=== PATIENT | male | born 1950 | race Caucasian/White ===

== ENCOUNTER 2016-06-20 22:54 | Inpatient (IN) | payer SELFPAY ==
[~2016-06-20] VITALS: Ht 182.9 cm; Wt 86.3 kg
--- NOTE | 2016-06-20 23:08 | ED NEURO DEFICIT/STROKE ---
History of Present Illness General Chief Complaint: Neuro Symptoms/ Deficit Stated Complaint: STROKE Source: family, EMS Exam Limitations: clinical condition Vital Signs & Intake/Output Vital Signs & Intake/Output Vital Signs Date Time Temp Pulse Resp B/P Pulse O2 O2 Flow FiO2 Ox Delivery Rate 06/21 0109 96 BIPAP 06/21 0055 104 97 06/21 0037 91 121/67 06/21 0022 100 120/87 97 BIPAP 06/21 0012 109 126/86 96 BIPAP 06/20 2353 109 22 133/89 96 BIPAP 06/20 2347 108 97 06/20 2343 94 Non 10L ReBreather 06/20 2330 110 22 155/92 96 Non ReBreather 06/20 2310 184/96 06/20 2305 108 30 95 Non ReBreather Triage Nurses Notes Reviewed? yes Onset: Abrupt Duration: hour(s): Timing: single episode today Severity: moderate New Weakness: RUE Altered Sensations: unknown Baseline: alert, oriented x 3 Associated Symptoms: pt had seizure upon arrival to ED. HPI: 65 yo gentleman h/o lung ca presents with mental status change and a seizure. Past History Medical History Any Pertinent Medical History? see below for history Respiratory: lung cancer... s/p chemo Surgical History Surgical History: unobtainable Family History Hx Contributory? No Review of Systems Review of Systems Constitutional: Reports: no symptoms. EENTM: Reports: no symptoms. Respiratory: Reports: no symptoms. Cardiovascular: Reports: no symptoms. GI: Reports: no symptoms. Genitourinary: Reports: no symptoms. Musculoskeletal: Reports: no symptoms. Skin: Reports: no symptoms. Neurological/Psychological: Reports: no symptoms. Hematologic/Endocrine: Reports: no symptoms. Immunologic/Allergic: Reports: no symptoms. All Other Systems: Reviewed and Negative Comments as per family Physical Exam Physical Exam General Appearance: well developed/nourished, severe distress Head: left gaze preference. Eyes: Bilateral: other (leftward horizontal nystagmus). Ears, Nose, Throat: normal ENT inspection Neck: normal inspection, supple, full range of motion Respiratory: normal breath sounds Cardiovascular: regular rate/rhythm Gastrointestinal: normal bowel sounds, soft, non-tender Back: normal inspection Extremities: normal range of motion Psychiatric: awake, alert, oriented x 3 Cranial Nerves: left gaze preference... pt with normal muscule tone, but minimally responsive to verbal stimuli. 2+ dtr's throughout. pupils sluggishly responsive. Coordination/Gait: not moving extremities Motor/Sensory: not moving extremities, minimal withdrawal to painful stimuli Reflexes: 2+: bicep (R), bicep (L), knee (R), knee (L). Core Measures CVA/TIA Diagnosis: No Severe Sepsis Present: No Septic Shock Present: No Progress Differential Diagnosis: seizure vs cva vs other. Plan of Care: Orders Procedure Date/time Status LACTIC ACID 06/218 Active Patient Data 06/21 0147 Active Marina, Insertion/Removal/Asses 06/21 0006 Active CULTURE,URINE 06/216 Active Restraint- Medical 06/21 0004 Active BIPAP 06/20 235 Complete ARTERIAL BLOOD GAS (GEN) 06/20 2344 Complete MIXED VENOUS BLOOD GAS (GEN) 06/20 2317 Complete TROPONIN LEVEL 06/20 2317 Active PROLACTIN 06/20 2317 Active LACTIC ACID 06/20 2317 Active COMPREHENSIVE METABOLIC PANEL 06/20 2317 Active CBC WITHOUT DIFFERENTIAL 06/20 2317 Complete EKG 06/20 2313 Active Current Medications Sig/Yolis Start time Last Medication Dose Stop Time Status Admin Phenytoin 1,000 MG ONCE ONE 06/20 2314 CAN (Dilantin) 06/20 2345 Sodium Chloride 250 ML (Normal Saline 0.9%) Laboratory Tests 06/21/16 0050: pH 7.35, pCO2 39, pO2 95, HCO3 21, ABG O2 Sat (Measured) 95.0 L, P-50 (Temp Corrected) Y, Carboxyhemoglobin 1.2 L, O2 Concentration % 40%, Temperature 97.3 , Respiration Rate 24, O2 Delivery Method VISION-FFM, Vent Mode ST, Expiratory Pressure 6, Inspiratory Pressure 20, Phlebotomy Draw Site RIGHT RADIAL 06/20/165: Anion Gap 25 H, Estimated GFR > 60, BUN/Creatinine Ratio 13.6, Glucose 151 H, Lactic Acid > 12.0 H, Calcium 10.8 H, Total Bilirubin 0.6, AST 51, ALT 99 H, Alkaline Phosphatase 48, Troponin I < 0.01, Total Protein 8.0, Albumin 5.3 H, Globulin 2.7, Albumin/Globulin Ratio 2.0, Prolactin Pending, CBC w Diff NO MAN DIFF REQ, RBC 4.77, MCV 104.1 H, MCH 34.4 H, RDW 15.8 H, MPV 10.7 H, Gran % 61.5, Lymphocytes % 26.2, Monocytes % 6.8, Eosinophils % 4.9, Basophils % 0.6, Absolute Granulocytes 9.7 H, Absolute Lymphocytes 4.1 H, Absolute Monocytes 1.1 H, Absolute Eosinophils 0.8, Absolute Basophils 0.1, PUBS MCHC 33.0 06/20/16 2315: Bicarbonate Actual 18.3 L, Mixed VBG pH 6.97 L, Mixed VBG pCO2 81 H, Mixed VBG O2 Saturation 60 H, Carboxyhemoglobin 2.5, O2 Concentration % 100%, O2 Delivery Method NRB Microbiology 06/21 0110 URINE ROUT: Urine Culture - RECD Diagnostic Imaging: Viewed by Me: Radiology Read, CT Scan. Discussed w/RAD: Radiology Read, CT Scan. Radiology Impression: head ct... no acute intracranial pathology CXR Impression: no acute abnormality, no infiltrates, normal size heart, normal mediastinum Initial ED EKG: normal axis, normal intervals, normal p-waves, normal QRS complex, normal sinus rhythm Comments: PATIENT: JAYDEN BHATTI PRESENT AGE: 65 PATIENT ACCOUNT NO: [id number] : 52 LOCATION: [facility] ORDERING PHYSICIAN: CHASTITY RED MD SERVICE DATE: 06/20/16 EXAM TYPE: CAT - CT HEAD WO IV CONTRAST EXAMINATION: CT HEAD WITHOUT CONTRAST CLINICAL INFORMATION: Altered mental status. CVA. COMPARISON: None TECHNIQUE: Contiguous axial imaging was performed from the skull base to vertex without intravenous administration of contrast. DLP: 600.71 mGy-cm FINDINGS: There is no evidence of acute intracranial hemorrhage or territorial infarction. No abnormal mass effect or midline shift is seen. Shah to white matter differentiation is well preserved. No extra-axial fluid collections are identified. The ventricles are normal in size. There is no abnormal attenuation within the brain parenchyma. The osseous structures and soft tissues are normal. The mastoid air cells and visualized portions of the paranasal sinuses are well aerated. IMPRESSION: No acute intracranial pathology. This critical result was discussed with Dr. Red on 11:15 PM, and it was ascertained that the content and urgency of the report was understood at the time of direct communication. DICTATED BY: ADI LOZADA MD DATE/TIME DICTATED:06/20/162310 VEHICLE BODY MAKER:KAMARI DATE/TIME TRANSCRIBED:06/20/162310 CONFIDENTIAL, DO NOT COPY WITHOUT APPROPRIATE AUTHORIZATION. <Electronically signed in Other Vendor System> SIGNED BY: ADI LOZADA MD 06/20/16 232 PATIENT: JAYDEN BHATTI PRESENT AGE: 65 PATIENT ACCOUNT NO: [id number] : 52 LOCATION: [facility] ORDERING PHYSICIAN: CHASTITY RED MD SERVICE DATE: 06/20/16 EXAM TYPE: RAD - XRY-PORTABLE CHEST XRAY EXAMINATION: XR PORTABLE CHEST CLINICAL INFORMATION: Dyspnea. COMPARISON: None TECHNIQUE: Portable AP portable view of the chest was obtained. 11:30 PM FINDINGS: No significant abnormality is noted involving the heart, lungs, mediastinum, bony thorax or soft tissues. IMPRESSION: Unremarkable examination. DICTATED BY: ADI LOZADA MD DATE/TIME DICTATED:06/20/162342 VEHICLE BODY MAKER:KAMARI DATE/TIME TRANSCRIBED:06/20/162342 CONFIDENTIAL, DO NOT COPY WITHOUT APPROPRIATE AUTHORIZATION. <Electronically signed in Other Vendor System> SIGNED BY: ADI LOZADA MD 06/20/162346 Departure Departure Disposition: STILL A PATIENT Condition: Stable Clinical Impression Primary Impression: Seizure Secondary Impressions: Lactic acidosis, Metabolic acidosis, Respiratory acidosis Referrals: PATIENT HAS NO PRIMARY CARE DR (PCP/Family) Departure Forms: Customer Survey General Discharge Information Comments 06/20/16, 23:14... pt placed directly on CT scanner upon arrival.... after ct scan, pt developed seizure, grand mal, tonic-clonic, responding to Ativan, lasted 4-[address] guzman, neurologist, pt suggested keppra load 1gm iv. 06/20/16, 23:16... discussed with radiologist... no structural disease/bleed. Admission Note Spoke With: ROBIN[facility] PERR[facility] Documentation of Exam: Documentation of any treatments & extenuating circumstances including Concerns Regarding Discharge (functional status, medication knowledge or non-compliance, living conditions, etc.) that warrant an admission rather than observation: pt with witnessed grand mal seizure, of uncertain etiology, also with lactic acidosis and transient mixed acidosis.... pt improving after keppra load and repeated ativan doses. pt merits icu level care, neurology consult, further investigatory studies. Critical Care Note Critical Care Note Critical Care Time: 30-74 min
--- NOTE | 2016-06-20 23:20 | CT SCAN REPORT ---
EXAMINATION: CT HEAD WITHOUT CONTRAST CLINICAL INFORMATION: Altered mental status. CVA. COMPARISON: None TECHNIQUE: Contiguous axial imaging was performed from the skull base to vertex without intravenous administration of contrast. DLP: 600.71 mGy-cm FINDINGS: There is no evidence of acute intracranial hemorrhage or territorial infarction. No abnormal mass effect or midline shift is seen. Shah to white matter differentiation is well preserved. No extra-axial fluid collections are identified. The ventricles are normal in size. There is no abnormal attenuation within the brain parenchyma. The osseous structures and soft tissues are normal. The mastoid air cells and visualized portions of the paranasal sinuses are well aerated. IMPRESSION: No acute intracranial pathology. This critical result was discussed with Dr. Red on 11:15 PM, and it was ascertained that the content and urgency of the report was understood at the time of direct communication.
[2016-06-20 23:40] LABS: ABSOLUTE BASOPHIL COUNT 0.1 /CUMM (0.0-0.2); ABSOLUTE EOSINOPHIL COUNT 0.8 /CUMM (0.0-0.7); ABSOLUTE MONOCYTE COUNT 1.1 /CUMM (0.10-0.60); BASOPHIL % 0.6 % (0.0-2.0); EOSINOPHIL % 4.9 % (0-5); GRANULOCYTE % 61.5 % (42.2-75.2); HEMATOCRIT 49.6 % (42-52); MEAN CORPUSCULAR HGB 34.4 PG (27.0-31.0); MEAN CORPUSCULAR VOLUME 104.1 FL (80.0-94.0); MEAN PLATELET VOLUME 10.7 FL (7.4-10.4); PLATELET COUNT 101 /CUMM (130-400); RBC DISTRIBUTION WIDTH 15.8 % (11.5-14.5); RED BLOOD CELL CT 4.77 /CUMM (4.70-6.10); WHITE BLOOD CELL COUNT 15.8 /CUMM (4.8-10.8)
[2016-06-20 23:41] LABS: ABSOLUTE GRANULOCYTE CT 9.7 /CUMM (1.4-6.5); ABSOLUTE LYMPH COUNT 4.1 /CUMM (1.2-3.4)
--- NOTE | 2016-06-20 23:42 | NUR ---
XRAY AT BEDSIDE FOR IMAGING, RESPIRATORY AT BEDSIDE FOR BIPAP PLACEMENT
--- NOTE | 2016-06-20 23:43 | NUR ---
LYNDON FROM HOME WITH FAMILY WHERE FAMILY NOTED NEW ONSET CONFUSION AND L ARM HEAVINESS AROUND 2129. UPON EMS ARRIVAL, PT WAS SHAKING. NORMAL GCS 15, ARRIVES NONVERBAL WITH LEFT SIDED GAZE NYSTAGMUS, NO PURPOSEFUL MOVEMENTS AND NOTABLE LEFT SIDED WEAKNESS AND FACIAL DROOP. L PUPIL 2MM AND FIXED. PT TAKEN IMMEDIATELY TO CT ON ARRIVAL AND STROKE ALERT CALLED BY DR CALVERT. 18G IV ESTABLISHED IN CT. PT BEGAN DEMONSTRATING SEIZURELIKE ACTIVITY AND BROUGHT BACK TO ROOM 11 AND MEDICATED WITH ATIVAN 2MG IV AND KEPPRA GTT INITIATED. ORAL SECRETIONS SUCTIONED. SECOND IV ESTABLISHED AND FAMILY UPDATED ON PT STATUS BY DR CALVERT. WELSH SPEAKING AT BASELINE. LABS DRAWN AND SENT AND VBG OBTAINED. HIGH FLOW O2 ADMINISTERED VIA NRB AND PURPOSEFUL MOVEMENTS NOTED TO NOXIOUS STIMULI. SINUS TACH RATE 110'S WITH NO ECTOPY OBSERVED. LUNG SOUNDS RONCHOROUS.
--- NOTE | 2016-06-20 23:45 | NUR ---
PT MEDICATED WITH 2MG ATIVAN PER EMAR
--- NOTE | 2016-06-20 23:47 | RADIOLOGY REPORT ---
EXAMINATION: XR PORTABLE CHEST CLINICAL INFORMATION: Dyspnea. COMPARISON: None TECHNIQUE: Portable AP portable view of the chest was obtained. 11:30 PM FINDINGS: No significant abnormality is noted involving the heart, lungs, mediastinum, bony thorax or soft tissues. IMPRESSION: Unremarkable examination.
--- NOTE | 2016-06-21 00:04 | NUR ---
BILATERAL UPPER SOFT RESTRAINTS ORDERED BY DR. CALVERT. PT SKIN INTEGRITY WNL, RANGE OF MOTION WNL, REGULAR RESPIRATIONS NOTED.
--- NOTE | 2016-06-21 00:06 | NUR ---
URIMETER MEHTA CATHETER PLACED, 200ML OF CLEAR YELLOW URINE FROM PT
--- NOTE | 2016-06-21 00:15 | NUR ---
PT REMAINS ASLEEP AT THIS TIME, FAMILY AT BEDSIDE. BIPAP REMAINS IN PLACE, 02 SAT 96%. REGULAR RESPIRATIONS NOTED, NO APPARENT DISTRESS. PT REMAINS IN BILATERAL UPPER RESTRAINTS. CIRCULATION WNL, SKIN INTEGRITY WNL, UNLABORED RESPIRATIONS, WILL CONTINUE TO MONITOR.
--- NOTE | 2016-06-21 00:42 | NUR ---
PT REMAINS ASLEEP AT THIS TIME, BIPAP REMAINS IN PLACE 95% O2 SAT. PT REMAINS IN BILATERUAL UPPER RESTRAINTS, SKIN INTEGRITY WNL, REGULAR RESPIRATIONS NOTED, RANGE OF MOTION WNL, FAMILY AT BEDSIDE. WILL CONTINUE TO MONITOR.
--- NOTE | 2016-06-21 01:58 | NUR ---
PT REMAINS ASLEEP AT THIS TIME, FAMILY AT BEDSIDE. SITTER IN PLACE FOR SAFETY. PT REMAINS IN BILATERAL UPPER SOFT RESTRAINTS. SKIN INTEGRITY WNL, REGULAR RESPIRATIONS NOTED.
--- NOTE | 2016-06-21 02:06 | NUR ---
PT MEDICATED WITH 2MG ATIVAN PER EMAR FOR AGITATION
--- NOTE | 2016-06-21 02:13 | NUR ---
HOUSE STAFF AT BEDSIDE FOR PT EVALUATION
--- NOTE | 2016-06-21 02:50 | NUR ---
PT REMAINS ASLEEP, SKIN INTEGRITY WNL, REGULAR RESPIRATIONS NOTED, SITTER IN PLACE FOR SAFETY. FAMILY AT BEDSIDE. HOUSE STAFF REMAINS AT BEDSIDE FOR EVALUATION
--- NOTE | 2016-06-21 02:52 | History & Physical ---
[facility] 06/21/16 0252: General Information and HPI MD Statement: I have seen and personally examined JAYDEN BHATTI and documented this H&P. The patient is a 65 year old M who presented with a patient stated chief complaint of [altered mental status and seizure-like acitivity]. Source of Information: family, EMS Exam Limitations: unable to give history, not alert/orientated, confusion History of Present Illness: Patient is a 65 year old gentleman with known PMH of lung cancer who is BIBA after family noticed that the patient is behaving differently, appearing to be ' fixed' and 'confused'. Patient was here in [place] [facility] [place] brother's . At the time of the interview patient himself is confused and not responsive to verbal stimuli, also he does not speak [place]an. History is obtained from his two brothers at bedside. Apparently the patient was coming back from the and was in the car when he started to become altered with his gaze fixed to the front and appearing confused. When they arrived home he was able to walk out of the car by himself and go up the stairs, but he then started to have shakiness with jerky movements most prominent on the left arm. the family denied any LOC, generalized body shakes and loss of bladder or bowel control. He walked outside the house to smoke cigarette but gradually became more confused and also started to rub the chest as if he was having a heart attack, therefore the family immediately called 911 and brought him to the ED. Upon arrival stroke alert was activated for the patient and he went directly to the CT scan unit. After that the patient developed tonic-clonic (grandmal) seizures lasting 4-5 min that responded to Ativan. Patient was suggested to be given a 1 gram load of Keppra per neurology recommendations. Patient's family said he did not have such symptoms in the past, reported that he appeared healthy until this incident, no fever, chills, SOB, URI symptoms, or GI problems. Patient's complete medical history is currently unavailable, his (who is the next of kin) is going to arrive in the morning. According to the brothers, the patient was diagnosed with lung cancer (end stage, reportedly with metastases to pancreas) and received chemotherapy. However a month ago he had a visit to his doctor who told him he is cancer free. Allergies/Medications Allergies: Coded Allergies: iodine (Unknown 06/21/16) Compliance With Home Meds: UNKNOWN Past History Travel History Traveled to [place] past 21 day No Medical History Neurological: NONE EENT: NONE Cardiovascular: hypertension Respiratory: lung cancer diagnosed in Apr 2015 s/p chemo Gastrointestinal: NONE Hepatic: NONE Renal: NONE Musculoskeletal: NONE Psychiatric: NONE Endocrine: NONE Blood Disorders: NONE Cancer(s): NONE Surgical History Surgical History: non-contributory Past Family/Social History Family History Relations & Conditions if any Relation not specified for: Family history unknown Psychosocial History Smoking Status: Current Some Day Smoker ETOH Use: 2 beers/day Illicit Drug Use: denies illicit drug use Functional Ability Ambulation: independent Review of Systems Review of Systems Constitutional: Reports: see HPI (not communicating). Exam & Diagnostic Data Last 24 Hrs of Vital Signs/I&O Vital Signs Date Time Temp Pulse Resp B/P Pulse O2 O2 Flow FiO2 Ox Delivery Rate 06/21 0316 95 Nasal 4.0L Cannula 06/21 0308 102 100 06/21 0109 96 BIPAP 06/21 0055 104 97 06/21 0037 91 121/67 06/21 0022 100 120/87 97 BIPAP 06/21 0012 109 126/86 96 BIPAP 06/20 2353 109 22 133/89 96 BIPAP 06/20 2347 108 97 06/20 2343 94 Non 10L ReBreather 06/20 2330 110 22 155/92 96 Non ReBreather 06/20 2310 184/96 06/20 2305 108 30 95 Non ReBreather Physical Exam General Appearance Mild Distress, noncooperative, opens eyes when called, does not follow directions, does not respond to questions Skin No Rashes, No Breakdown, No Significant Lesion HEENT Atraumatic, EOMI, Mucous Membr. moist/pink, pupils equal and reactive to light Neck Supple Cardiovascular Regular Rate, Normal S1, Normal S2, No Murmurs Lungs Normal Air Movement, rhonchi heard on the left lower chest Abdomen Soft, distended, umbilical hernia noted Neurological Normal Tone, limited exam due to confusion , does not follow commands but spontaneously moves all 4 extremities, no focal neurologic deficits are present. Extremities No Edema, Normal Pulses, No Tenderness/Swelling Vascular Pulses Symmetrical Last 24 Hrs of Labs/Joshua: Laboratory Tests 06/21/16 0050: pH 7.35, pCO2 39, pO2 95, HCO3 21, ABG O2 Sat (Measured) 95.0 L, P-50 (Temp Corrected) Y, Carboxyhemoglobin 1.2 L, O2 Concentration % 40%, Temperature 97.3 , Respiration Rate 24, O2 Delivery Method VISION-FFM, Vent Mode ST, Expiratory Pressure 6, Inspiratory Pressure 20, Phlebotomy Draw Site RIGHT RADIAL 06/20/16 2325: Anion Gap 25 H, Estimated GFR > 60, BUN/Creatinine Ratio 13.6, Glucose 151 H, Lactic Acid > 12.0 H, Calcium 10.8 H, Phosphorus 6.0 H, Total Bilirubin 0.6, AST 51, ALT 99 H, Alkaline Phosphatase 48, Troponin I < 0.01, Total Protein 8.0 , Albumin 5.3 H, Globulin 2.7, Albumin/Globulin Ratio 2.0, 25-OH Vitamin D Total 12.7 L, Prolactin 67.0 H, PTH Intact 52.3, CBC w Diff NO MAN DIFF REQ, RBC 4.77, MCV 104.1 H, MCH 34.4 H, RDW 15.8 H, MPV 10.7 H, Gran % 61.5, Lymphocytes % 26.2, Monocytes % 6.8, Eosinophils % 4.9, Basophils % 0.6, Absolute Granulocytes 9.7 H, Absolute Lymphocytes 4.1 H, Absolute Monocytes 1.1 H, Absolute Eosinophils 0.8, Absolute Basophils 0.1, PUBS MCHC 33.0 06/20/16 2315: Bicarbonate Actual 18.3 L, Mixed VBG pH 6.97 L, Mixed VBG pCO2 81 H, Mixed VBG O2 Saturation 60 H, Carboxyhemoglobin 2.5, O2 Concentration % 100%, O2 Delivery Method NRB Microbiology 06/21 011 URINE ROUT: Urine Culture - RECD Assessment/Plan Assessment: Patient is a 65 year old gentleman with known PMH of lung cancer who is BIBA with AMS with confusion and unresponsiveness. Patient had a grand mal seizure when he arrived to the ED. He is started on Keppra per neurology. Patient is admitted to the ICU for close monitoring. Problem list and plan: Seizure and AMS in the setting of metastatic lung cancer Prolactin elevated. Etiology of seizure unclear, possible malignant brain metastases. CT of the head unremarkable. * neurochecks every 1 hour * continue Keppra at 500 mg BID * MRI of the brain, EEG * seizure precautions * neurology consult placed for am with Dr. Cadet * follow up on urine toxicology screen * NPO for aspiration precautions * MRI brain on Thursday * CT chest/abdomen/pelvis to evaluate for possible metastases Anion gap metabolic acidosis and lactic acidosis * IV fluids * repeat lactate * repeat BEP Leukocytosis and thrombocytopenia Afebrile. Watch off antibiotics * UC, BC, sputum culture * if spiked fever start ABx * repeat CBC Hypercalcemia * check PTH, Vitamin D, PTH Mechanical DVT prophylaxis (thrombocytopenic) Full code As Ranked By This Provider Problem List: 1. History of lung cancer in adulthood 2. Seizure Core Measures/Miscellaneous Acute Coronary Syndrome ACS Diagnosis: No Cerebrovascular Accident CVA/TIA Diagnosis: No Congestive Heart Failure CHF Diagnosis: No Venous Thromboembolism VTE Risk Factors: Acute medical illness, Age > 40, Cancer/chemo/oth therapy No Mech VTE prophylaxis d/t: No contraindications No VTE Pharm Prophylaxis d/t: No contraindications VTE Diagnosis: No VTE Type: NONE VTE Confirmed by (Test): NONE Severe Sepsis Severe Sepsis Present: No Septic Shock Septic Shock Present: No Miscellaneous Documentation Attending Case Discussed With: ROBINSON PERRY,SUSAN Primary Care Physician: PATIENT HAS NO PRIMARY CARE DR Patient sees these Specialists unknown Level of Patient Care: Critical Care (CRI) LAKSHMI PERRY,NEIL 06/21/16 0342: Resident Review Statement Resident Statement: examined this patient, discussed with hospital intern, agreed with hospital intern, discussed with family, reviewed EMR data (avail), reviewed images, amended to note Other Findings: This is 65-year-old obese male with past medical history of lung cancer diagnosed in April 2015 status post chemotherapy with most recent chemotherapy a month ago currently in complete remission as per family, was visiting from [place] to attend of family member, was brought in by his brother in ambulance after patient found acute onset confusion associated with some shaking concerning for seizure. Patient was sedated and all history were provided by patient's to brother who were at bedside. Patient and family speaks Serbian but one of the brother was able to translate in [place]an who was the primary source of information. As per the brother patient was fine up until this evening when he was going to his sister's house. While driving his brother noted that patient all of a sudden became very confused and started complaining of not feeling well. Patient's brother noted patient having FIXED GAZE but was able to communicate. On arrival to patient's sister house patient was able to move out of the car and walk to the house with help of brother. Patient noted unsteady but was able to walk by himself flight of stairs with the help of his brother. Patient remained confused, sat down in chair and brother noted him staring with left lateral gaze but was able to move all extremities. As per the brother patient did have some shaking of upper extremities and due to his change in mental status EMS was called and transferred to ER. End route patient did not have any episode of seizure but patient remained very confused and unresponsive. On arrival to ER patient was taken directly to CAT scan of the head and post imaging patient developed tonic-clonic seizure which lasted probably for 2 minutes and aborted with 2 mg of IV Ativan and loading dose of Keppra 1000 mg. As per the family patient was fine up until this episode without no recent upper respiratory infection or trauma, head injury, infection, drug toxicity or illicit drug use. His vitals on admission were HR 108, RR 22, BP 184/96 which came down to 121/67, O2 sat 96% on BiPAP. On physical exam patient was sedated not responding to verbal commands but was able to move all 4 extremities, heart S1-S2 normal without murmur, lungs clear on auscultation, HEENT PERRLA EOMI, abdomen soft nontender nondistended with preserved fall sounds noted umbilical hernia, no peripheral edema, unable to evaluate neurologic deficit due to current mental status. Labs were significant for leukocytosis of 15,800, platelet of 101, MCV of 104.1, K3.5, bicarbonate 16, BUN 15, creatinine 1.1, anion gap of 25, blood glucose of 151, lactic acid of 12, calcium of 10.8, normal LFT, negative troponin, prolactin 67, PTH 52.3, phosphorus 6, vitamin D 12.7 Chest x-ray was unremarkable CT head did not show any evidence of intracranial bleed EKG revealed normal sinus rhythm with first-degree AV block at rate of 107 with RBBB pattern and poor R-wave progression Assessment and plan: This is 65 year old male with past medical history of lung cancer status post chemotherapy now admitted with acute onset confusion and an episode of tonic- clonic seizure with negative CAT scan of the head. 1. Acute seizure Unknown etiology. Possible differential include malignancy with metastases, drug overdose. Noted elevated lactic acid with prolactin CT head was negative for any intracranial bleed or lesion Patient started on IV Keppra with loading dose will continue Keppra 500 mg 2 times a day Neurochecks Seizure precaution Neurology consult in a.m. Keep nothing by mouth Aspiration precaution U tox - MRI brain on Thursday - Consider EEG 2. Leukocytosis ? Reactive due to seizure Watch off antibiotics Follow urine and blood culture result 3. Anion gap metabolic acidosis secondary to lactic acidosis in setting of seizure - IV fluid hydration - Recheck lactate every 3 hours 4. Hypercalcemia Noted elevated calcium and phosphorus with normal PTH and low vitamin D 5. History of lung cancer Once patient is stable will get CT chest/abdomen/pelvis without contrast to rule out any evidence of malignancy with metastatic disease 6. Thrombocytopenia - Unknown etiology - Monitor platelet count 7. DVT prophylaxis Mechanical due to thrombocytopenia 8. Full code ROBINSON PERRY, [facility] 06/21/16 0642: Attending MD Review Statement Attending Statement Attending MD Statement: examined this patient, discuss w/resident/PA/ELECTRO MECHANICAL DESIGNER, agreed w/resident/PA/ELECTRO MECHANICAL DESIGNER, discussed with family Attending Assessment/Plan: 65 yo Serbian speaking M smoker with h/o lung cancer diagnosed Apr 2015 and treated with chemo, was [place] [facility] [place] member, when he was noted to have acute confusion, fixed left gaze, and seizures (around 9.30 pm). No tongue biting, fecal or urinary incontinence. No facial drooping, speech deficits or focal weakness noted by family. He has no prior h/o seizures. History obtained from family. Patient had a witnessed gand-mal seizure episode while at CAT scan that resolved with ativan. He was placed on Bipap on ER arrival as he was unresponsive and had an abnormal VBG. His sats improved and repeat ABG was better so he was titrated off the Bipap. He is tachycardic, sats 98% on 4L. On our evaluation, patient was lethargic, puils equal and RTL, dry mucous membranes, moving all extremities but unable to follow commands. Limited neuro exam. Labs: WBC 15.8, macrocytosis, Plt 101, bicarb 16, AG 25, creat 1.1, glucose 151, lactic acid > 12 --> 2.5, Calcium 10.8, phosphorus 6.0, trop neg, prolactin high. Alcohol <10. AB.35/39/95/[address]: no acute pathology. CXR neg. EKG: sinus tachycardia, RBBB, Qtc 465. 1. Confusion in the setting of new onset seizure and post-ictal state. Unclear etiology ?brain mets. Stroke cannot be ruled out. ICU admit, neurochecks, aspiration/ fall precautions. Check urine tox screen. IV ativan as needed for seizures. IV keppra initiated, NPO, Neuro consult and EEG. Consider MRI. Consider CT chest /abdomen/pelvis when patient stabilizes, to look for mets. CRCU consult. Serial EKG and troponin to rule out ACS. If elevated troponin, consider Echo. 2. HAGMA with lactic acidosis in the setting of seizure. IV hydration, trend lactic acid. 3. Leukocytosis likely reactive. Panculture, CXR no pneumonia. UA pending. If patient spikes a fever, will consider IV Unasyn for possible aspiration. For now , will monitor off antibiotics. 4. Hypercalcemia likely dehydration, check PTH and give IVF. Check vit D levels. 5. Thrombocytopenia of unclear etiology. Check peripheral smear and coags. DVT ppx Alps. Full code. Patient's is on her way, please obtain further information about the patient and discuss plan with her. TTS > 45 mins
--- NOTE | 2016-06-21 03:04 | NUR ---
PT MEDICATED WITH 1MG ATIVAN PER EMAR FOR AGITATION
--- NOTE | 2016-06-21 03:05 | NUR ---
RESPIRATORY AT BEDSIDE
--- NOTE | 2016-06-21 03:07 | NUR ---
PT PLACED ON 4L NC BY RESPIRATORY THERAPIST DOUGLAS, O2 SAT 95%
--- NOTE | 2016-06-21 03:15 | NUR ---
REPORT GIVEN TO MIYA DEVLIN
--- NOTE | 2016-06-21 03:21 | NUR ---
BED ASSIGNMENT 106
--- NOTE | 2016-06-21 03:27 | NUR ---
PER BEEPER # [id number] PT CANNOT GO TO ICU UNTIL NON-EMERGENT CAT SCAN OF CHEST, ABDOMEN, AND PELVIS. HOUSE STAFF TOLD ABOUT PATIENTS INCREASING AGITATION, TOLD THAT HOUSE STAFF WOULD PUT IN AN ORDER FOR 2MG ATIVAN RIGHT BEFORE CAT SCAN. HOUSE STAFF PAGED.
--- NOTE | 2016-06-21 03:34 | NUR ---
REPEAT LACTIC DRAWN AND SENT TO LAB BY [facility] BEEPER # [id number] PAGED X2
--- NOTE | 2016-06-21 03:41 | NUR ---
PT MEDICATED WITH 2MG ATIVAN AND D5 1/2 NS INFUSING AT 75 MLS/HR PER EMAR
--- NOTE | 2016-06-21 04:48 | NUR ---
RECEIVED PT FROM ER VIA STRETCHER AT 0400-EKG MONITORING, IVF INFUSING, MEHTA IN PLACE, 02 AT 4LNC, BILATERAL SOFT WRIST RESTRAINTS ON. PT PLACED IN BED AND ATTACHED TO BEDSIDE MONITOR. ORIENTATION TO UNIT ATTEMPTED-PT NEPALESE SPEAKING ONLY AND IS NONVERBAL AT PRESENT. PT OPENS EYES TO VERBAL STIMULI, MOVES ALL EXTREMITIES, BUT NOT FOLLOWING COMMANDS AT PRESENT. PUPILS EQUAL AND REACT BRISKLY TO LIGHT. NO S/S OF PAIN AT PRESENT. SNORING NOTED. BREATH SOUNDS CLEAR WITH DIMINISHED BREATH SOUNDS AT BASES BILATERALLY. NO COUGH, SOB OR RESP DISTRESS NOTED AT PRESENT. SEE FLOW SHEET FOR VS, 02 SATS, I/O'S. MONITOR SHOWS NSR, NO ECTOPY NOTED AT PRESENT. BP ELEVATED AT PRESENT-WILL MONITOR. ABD SOFT, NONTENDER, NONDISTENDED, POSITIVE BOWEL SOUNDS. MEHTA IN PLACE-DRAINING ADEQUATE AMT OF CLEAR YELLOW URINE. SKIN INTACT. FAMILY AT BEDSIDE FOR SHORT TIME BUT WENT HOME
--- NOTE | 2016-06-21 06:43 | Admission Certification ---
Admission Certification Certification Statement - As attending physician, I certify that at the time of - admission, based on clinical presentation, severity of - symptoms, need for further diagnostic testing and - therapeutic interventions, and risk of adverse outcomes - without in-hospital treatment, in my clinical assessment, - this patient requires an acute hospital stay for a minimum - of two nights or longer. I have also considered psychsocial - factors such as support system, advanced age, financial - issues, cognitive issues, and failed out-patient treatments, - past re-admission history, safety of patient, and lack of - compliance as applicable. Specific rationale supporting this admission is: New onset seizure in this patient with h/o lung cancer, lactic acidosis.
--- NOTE | 2016-06-21 07:25 | NUR ---
PT REMAINS DROWSY, ATTEMPTS TO OPEN EYES TO VERBAL STIMULI, MOVES ALL EXTREMETIES, OCCASSIONALLY SQUEEZES HANDS-BUT DIFFICULT TO ASSESS IF PURPOSABLE. RT FACIAL DROOP. PUPILS SLIGHLTY UNEQUAL, RT BRISKER THAN LT, RT SLIGHTLY LARGER THAN LT. REMAINS NONVERBAL. BILATERAL WRIST RESTRAINTS REMAIN ON. NSR, NO ECTOPY. BP 140-160'S. NO SEIZURE ACTIVITY NOTED SINCE ADMISSION. GOOD URINE OUTPUT. NO OTHER CHANGE IN PT ASSESSMENTS THOUGHOUT SHIFT.
[2016-06-21 07:57] LABS: ABSOLUTE BASOPHIL COUNT 0 /CUMM (0.0-0.2); ABSOLUTE EOSINOPHIL COUNT 0.3 /CUMM (0.0-0.7); ABSOLUTE GRANULOCYTE CT 10.3 /CUMM (1.4-6.5); ABSOLUTE LYMPH COUNT 1.4 /CUMM (1.2-3.4); ABSOLUTE MONOCYTE COUNT 0.5 /CUMM (0.10-0.60); BASOPHIL % 0.1 % (0.0-2.0); EOSINOPHIL % 2.1 % (0-5); GRANULOCYTE % 83.1 % (42.2-75.2); MEAN CORPUSCULAR HGB CONC 34.3 G/DL (33.0-37.0); MEAN CORPUSCULAR VOLUME 102.3 FL (80.0-94.0); MEAN PLATELET VOLUME 10.1 FL (7.4-10.4); RBC DISTRIBUTION WIDTH 15.3 % (11.5-14.5); RED BLOOD CELL CT 4.33 /CUMM (4.70-6.10)
[2016-06-21 08:00] VITALS: BP 140/70
[2016-06-21 08:16] LABS: HEMATOCRIT 44.3 % (42-52)
--- NOTE | 2016-06-21 09:25 | Cons- CRCU ---
PAUL LAURA 06/21/16 0822: General Information and HPI Consulting Request Date of Consult: 06/21/16 Requested By: Lyly PERRY Reason for Consult: seizure Source of Information: old records Exam Limitations: language barrier History of Present Illness: This is 65-year-old obese right-handed man was BIBA for altered mentation and seizure-type activity. He is a [place] citizen and speaks [place]. Due to technical and language barriers our knowledge about his PMH is very limited and mostly obtained from his brother by admitting team. Per brother " patient has a past medical history significant for newly diagnosed lung cancer (April 2015) status post chemotherapy. Last round of chemo was a month ago. Per family reports patient is currently in complete remission. Aftter attending an uneventful family gathering his brother found him distressed. Patient was discribed to us as confused. That spell was also associated with tremolousness. No Bowel and bladder incontinence, Loss of counciousness, tongue bite or focal weakness and numbness was reported. Per brother patient was able to move by that time but he was very confused and had " Fixed Gaze". In [facility] patient had one episode of tonic-clonic seizure in CAT scan unit, which lasted probably for 2 minutes, and aborted with 2 mg of IV Ativan and loading dose of Keppra 1000 mg. His vitals on admission were HR 108, RR 22, BP 184/96 which came down to 121/67, O2 sat 96% on BiPAP. Of note, patient has a significant smoking Hx of 1 ppd for 50 years and cut down to 1 PPw after he was diagnosed with lung cancer. FH of colon and lung cancer in his brothers. Allergies/Medications Allergies: Coded Allergies: iodine (Unknown 06/21/16) Current Medications: Current Medications Sig/Yolis Start time Last Medication Dose Route Stop Time Status Admin Acetaminophen 1,000 MG Q6P PRN 06/21 0345 AC IV Dextrose/Sodium 1,000 ML .[id number] 06/21 0330 AC 06/21 Chloride IV 0341 Levetiracetam 500 MG Q12 06/21 1000 AC N/A 1 UNIT IV Levetiracetam 1,000 MG STAT STA 06/20 2312 DC 06/20 N/A 1 UNIT IV 06/20 2326 2320 Lorazepam 2 MG ONE ONE 06/21 0345 DC / IV 06/21 0346 0341 Lorazepam 0 .STK-MED ONE 06/21 0341 DC .ROUTE Lorazepam 0 .STK-MED ONE 06/21 0302 DC .ROUTE Lorazepam 1 MG ONCE ONE 06/21 0300 DC / IV 06/21 0301 0304 Lorazepam 2 MG ONE ONE 06/21 0300 DC / IV 06/21 0301 0206 Lorazepam 0 .STK-MED ONE 06/21 0139 DC .ROUTE Lorazepam 2 MG ONCE ONE 06/20 2345 DC / IV 06/20 2346 2345 Lorazepam 0 .STK-MED ONE 06/20 2332 DC .ROUTE Lorazepam 2 MG ONCE ONE 06/20 2315 DC / IV 06/20 2316 2310 Lorazepam 0 .STK-MED ONE 06/20 2308 DC .ROUTE Morphine Sulfate 2 MG Q4P PRN 06/21 344 AC IV Phenytoin 1,000 MG ONCE ONE 06/20 2315 CAN Sodium Chloride 250 ML IV 06/20 2346 Review of Systems Review of Systems Constitutional: Reports: see HPI. EENTM: Reports: see HPI. Cardiovascular: Reports: see HPI. Respiratory: Reports: see HPI. GI: Reports: see HPI. Genitourinary: Reports: see HPI. Skin: Reports: see HPI. Neurological/Psychological: Reports: see HPI, tremors, tonic-clonic seizures. Hematologic/Endocrine: Reports: see HPI. All Other Systems: Reviewed and Negative Past History Travel History Traveled to [place] past 21 day No Medical History Blood Transfusion Hx: No Neurological: NONE EENT: NONE Cardiovascular: hypertension Respiratory: lung cancer diagnosed in Apr 2015 s/p chemo Gastrointestinal: NONE Hepatic: NONE Renal: NONE Musculoskeletal: NONE Psychiatric: NONE Endocrine: NONE Blood Disorders: NONE Cancer(s): NONE Surgical History Surgical History: non-contributory Family History Relations & Conditions If Any: BROTHER (Diet of Colon CA). . BROTHER (Lung CA with brain CHANEY). Relation not specified for: Family history unknown Psychosocial History Where Do You Live? Home Services at Home: None Smoking Status: Current Everyday Smoker (1ppd x 50 years ) ETOH Use: alcoholic Functional Ability ADLs Independent: dressing, eating, toileting, bathing. Ambulation: independent IADLs Independent: shopping, housework, finances, food prep, telephone, transportation , medication admin. Exam & Diagnostic Data Last 24 Hrs of Vital Signs/I&O Vital Signs Date Time Temp Pulse Resp B/P Pulse O2 O2 Flow FiO2 Ox Delivery Rate 06/21 0400 98 Nasal 4.0L Cannula 06/21 0316 95 Nasal 4.0L Cannula 06/21 0308 102 100 06/21 0109 96 BIPAP 06/21 0055 104 97 06/21 0037 91 121/67 06/21 0022 100 120/87 97 BIPAP 06/21 0012 109 126/86 96 BIPAP 06/20 2353 109 22 133/89 96 BIPAP 06/20 2347 108 97 06/20 2343 94 Non 10L ReBreather 06/20 2330 110 22 155/92 96 Non ReBreather 06/20 2310 184/96 06/20 2305 108 30 95 Non ReBreather Intake & Output 06/21 1600 06/21 0800 06/21 0000 Intake Total 225 Output Total 980 Balance -755 Intake, IV 225 Number 0 Bowel Movements Output, Urine 980 Patient 190 lb Weight Physical Exam General Appearance: no apparent distress, sedated, obese, patient is heavily sedated; hardly arousible Head: normal appearance Eyes: Bilateral: normal appearance, PERRL. Ears, Nose, Throat: normal pharynx, normal ENT inspection, Mocous membrane are dry Neck: normal inspection Respiratory: normal breath sounds, snoring during sleep , while sleeping, he had two apnic epsiodes while I was in the room Cardiovascular: regular rate/rhythm, S1 S2 Gastrointestinal: normal bowel sounds Rectal: deferred Extremities: normal inspection Neurologic/Psych: motor function: grossly intact; w/o deficit , neuro exaam was not done. Patient is very somnolent. He is not able to follow verbal commands. I deffer my exam to another time Last 48 Hrs of Labs/Joshua: Laboratory Tests 06/21/16 0643: Urine Opiates Screen < 100.00, Methadone Screen < 40, Barbiturate Screen < 60, Ur Phencyclidine Scrn < 6.00, Amphetamines Screen < 100, U Benzodiazepines Scrn < 85, Urine Cocaine Screen < 50, Urine Cannabis Screen < 5.00, Urine Color STRAW , Urine Clarity CLEAR, Urine pH 6.5, Ur Specific [place] <= 1.005, Urine Protein NEG, Urine Ketones NEG, Urine Nitrite NEG, Urine Bilirubin NEG, Urine Urobilinogen 0.2, Ur Leukocyte Esterase NEG, Ur Microscopic SEDIMENT EXAMINED, Urine RBC 3-5, Urine WBC RARE, Urine Hemoglobin MOD H, Urine Glucose NEG 06/21/16 0632: Anion Gap 8, Estimated GFR > 60, BUN/Creatinine Ratio 16.3, Lactic Acid 1.9, Troponin I < 0.01, CBC w Diff NO MAN DIFF REQ, RBC 4.33 L, MCV 102.3 H, MCH 35.0 H, RDW 15.3 H, MPV 10.1, Gran % 83.1 H, Lymphocytes % 11.0 L, Monocytes % 3.7, Eosinophils % 2.1, Basophils % 0.1, Absolute Granulocytes 10.3 H, Absolute Lymphocytes 1.4, Absolute Monocytes 0.5, Absolute Eosinophils 0.3, Absolute Basophils 0, PUBS MCHC 34.3 06/21/16 0333: Lactic Acid 2.5 H 06/21/16 0050: pH 7.35, pCO2 39, pO2 95, HCO3 21, ABG O2 Sat (Measured) 95.0 L, P-50 (Temp Corrected) Y, Carboxyhemoglobin 1.2 L, O2 Concentration % 40%, Temperature 97.3 , Respiration Rate 24, O2 Delivery Method VISION-FFM, Vent Mode ST, Expiratory Pressure 6, Inspiratory Pressure 20, Phlebotomy Draw Site RIGHT RADIAL 06/20/16 0635: Anion Gap 25 H, Estimated GFR > 60, BUN/Creatinine Ratio 13.6, Glucose 151 H, Lactic Acid > 12.0 H, Calcium 10.8 H, Phosphorus 6.0 H, Total Bilirubin 0.6, AST 51, ALT 99 H, Alkaline Phosphatase 48, Troponin I < 0.01, Total Protein 8.0 , Albumin 5.3 H, Globulin 2.7, Albumin/Globulin Ratio 2.0, 25-OH Vitamin D Total 12.7 L, Prolactin 67.0 H, PTH Intact 52.3, CBC w Diff NO MAN DIFF REQ, RBC 4.77, MCV 104.1 H, MCH 34.4 H, RDW 15.8 H, MPV 10.7 H, Gran % 61.5, Lymphocytes % 26.2, Monocytes % 6.8, Eosinophils % 4.9, Basophils % 0.6, Absolute Granulocytes 9.7 H, Absolute Lymphocytes 4.1 H, Absolute Monocytes 1.1 H, Absolute Eosinophils 0.8, Absolute Basophils 0.1, PUBS MCHC 33.0, Serum Alcohol < 10.0 06/20/16 2315: Bicarbonate Actual 18.3 L, Mixed VBG pH 6.97 L, Mixed VBG pCO2 81 H, Mixed VBG O2 Saturation 60 H, Carboxyhemoglobin 2.5, O2 Concentration % 100%, O2 Delivery Method NRB Diagnostic Data EKG Results see A&P CXR Results normal Other Results Head CT: no bleeding, no pathology Assessment/Plan Impression/Plan: Assessment and plan: This is 65 year old male with past medical history of lung cancer status post chemotherapy now admitted with acute onset confusion and an episode of tonic- clonic seizure. Pertinent Data Labs were significant for leukocytosis of 15,800, platelet of 101, MCV of 104.1, K3.5, bicarbonate 16, BUN 15, creatinine 1.1, anion gap of 25, blood glucose of 151, lactic acid of 12, calcium of 10.8, normal LFT, negative troponin, prolactin 67, PTH 52.3, phosphorus 6, vitamin D 12.7 Alcohol <10. AB.35/39/95/[address]: no acute pathology. CXR neg. EKG: sinus tachycardia, RBBB, Qtc 465.; Chest x-ray was unremarkable EKG revealed normal sinus rhythm with first-degree AV block at rate of 107 with RBBB pattern and poor R-wave progression List of Problems Respiratory- Possible base line COPD/OHS syndrome and PAGE; Abnormal VBG, fro which he was placed and eventualy titrated off BiPaP. Currently on 4 lit of O2 sat 98%. Intensive care: PT and INR. Needs sleep study as an out patient. Infectious disease- Leukocytosis : (sepsis Vs acute stress) his altered mental status is most possibly related to other causes than sepsis and septic shock; sofa score is unreliable; no evidence of infection. Watch off antibiotics; if patients develop fever please send panculture (urine sputum and blood culture) Cardiology: NSRR, 1st degree AV block; Trops <0.01 x2 ; No active issues Hem/oncology: Patient had a one-year history of lung cancer status post chemotherapy; currently on remission. His medical records from [facility] is not accessible to us at the moment. Considering his presentation and his history of lung cancer the importance diagnosis that needs to be considered are metastatic brain lesions from lung cancer, primary brain tumors and metastases with several lesions secondary to lung cancer. * Obtain CT scan of the abdomen and pelvis and chest without IV contrast * Obtain MRI of the head with gadolinium- Patient is very agitated; will get that Tomorrow * Confirm allergic reaction to Dye contrast * Obtain records from [facility] * Oncology consult on Thursday -Macrocytic Anemia and Throbocythopenia in a patient w/ significant Hx of EtOH drinking- * repeats lab * Observe Metabolic- 1) patient has lactic acidosis without evidence of sepsis and septic shock. Most possibly this observation was related to poor oral intake and dehydration. Lactic acidosis resolved. 2) Hypercalcemia likely dehydration: PTH intact and Vit D deficiency. Diet- NPO, pending swallow eval Neuro: Confusion and seizure in the setting of lung cancer or maybe related to withdrawl/detox from EToH. My thoughts are metastatic brain lesion secondary to, most probably ,lung cancer, primary brain tumors, primary seizure disorder or the consequence of EToH withdrawl . * Admit to ICU * Every 2 hour neuro check * Nothing by mouth * Aspiration and fall precaution * MRI of the head w/o ANAI * EEG * Keppra 500 mg IV every 12 * Banana bag 125 ml Q24 * Ativan 2 mg Q2 per CIWA * PT and Speech therapy consult * Neurology visit on a daily basis TTS 1h DVT- ALPS, Enoxaprin 30 SC daily FC Pain- Mild and mod pathways Problem List: 1. Metabolic acidosis 2. Lactic acidosis 3. Seizure 4. History of lung cancer in adulthood Consult Acknowledgment - Thank you for your consult request. VICTOR M GARCIA MD 06/21/16 1045: Assessment/Plan Other Findings/Comments: Victor M Romero M.D. have examined this patient, reviewed available EMR data, personally reviewed images, discussed with resident/PA/BILLING SUPERVISOR, discussed management plan with housestaff and nursing staff, discussed managment plan all of healthcare providers, discussed management plan with patient and/or family, agreed with resident/PA/BILLING SUPERVISOR. The past history and parts of the chart have been autopopulated. Impression 65 year old man * Altered mental status - s/p tonic clonic seizure - differential includes neoplastic, seizure, unlikely infectious * Hx lung cancer? * tobacco dependence disorder * Left renal cysts * L1 compressoin deformity * Hepatic steatosis * Resolved lactic acidosis * Macrocytosis * Leukocytosis likely stress related * Thrombocytopenia Plan Respiratory - s/p bipap - no longer necessary - no acute issues - ?lung cancer without clear evidence on CT, will attempt to get records/more information ID - no acute issues, monitor wbc, fevers CVS - monitor hemodynamics, bp stable - ECHO Heme - f/u coags - thrombocytopenia - will hold a/c until status of ?neoplastic disease is evaluated and thrombocytopenia precludes therapy at this time - check folate, b12 Metabolic - ins/outs, creatinine, electrolyte monitoring, lactic acid resolved - add on magnesium Alimentary - NPO Neuro - MRI with contrast today - neurology consultation DVT prophylaxis - ALPS, hold a/c given thrombocytopenia and possible neoplastic intracranial process TTS 50 min Consult Acknowledgment - Thank you for your consult request.
[2016-06-21 09:27] LABS: WHITE BLOOD CELL COUNT 12.4 /CUMM (4.8-10.8)
[2016-06-21 09:29] LABS: PLATELET COUNT 82 /CUMM (130-400)
--- NOTE | 2016-06-21 09:31 | CT SCAN REPORT ---
EXAMINATION: CT CHEST WITHOUT CONTRAST CT ABDOMEN AND PELVIS WITHOUT CONTRAST CLINICAL INFORMATION: Presumptive Dx: Brain metastasis. Signs Symptoms: seizure COMPARISON: No pertinent prior studies are available for comparison. TECHNIQUE: Multidetector volumetric imaging was performed from the thoracic inlet through the pubic symphysis. Sagittal and coronal images were reformatted. DOSE: 976.7 mGy-cm FINDINGS: -CHEST- LUNG: Dependent atelectasis is present within the lower lobes bilaterally with subsegmental platelike atelectasis in the lung bases, right greater than left. No focal consolidation. Central airways are clear. Calcified granulomas are present in the upper lobes posteriorly near the apices. No suspicious pulmonary nodules are identified. MEDIASTINUM: Ascending thoracic aorta is borderline ectatic. Heart is normal in size. No pericardial effusion. No hilar or mediastinal lymphadenopathy. PERICARDIUM/PLEURA: No significant effusion. No pleural mass or thickening. CHEST WALL/AXILLA: Unremarkable. -ABDOMEN/PELVIS- LIVER, GALLBLADDER, BILIARY TREE: Hypoattenuation of the hepatic parenchyma is consistent with steatosis. Areas of focal fatty sparing are seen around the gallbladder fossa. Gallbladder is normal in size without apparent inflammatory changes or radiodense gallstones. PANCREAS: Unremarkable. SPLEEN: Unremarkable. ADRENAL GLANDS: Unremarkable. KIDNEYS AND URETERS: There is a 2.2 cm focus of hypoattenuation in the left kidney which is water density, incompletely characterized on this study but most likely a cyst. An exophytic 1.5 cm focus at the lateral aspect of the interpolar region of the left kidney is more intermediate density, though likely more complex cyst. Multiple subcentimeter foci of hypoattenuation are present and too small to characterize. No nephrolithiasis or hydronephrosis. Kidneys normal in size. There is perinephric stranding at the left kidney, potentially chronic. Ureters are unremarkable. BLADDER: Amrina catheter terminates within the bladder. There is a catheter related gas within the bladder anteriorly. No significant inflammatory changes are present. GASTROINTESTINAL TRACT: Stomach, small bowel, and colon are normal in caliber. No significant bowel wall thickening or surrounding inflammatory changes are identified. Appendix is normal. There is a moderate amount of stool throughout the colon. ABDOMINAL WALL: There is a fat-containing umbilical hernia which is moderate in size. Haziness of the omental fat just deep to this hernia is suggested this may be a mild degree of inflammation/irritation as result of the hernia. VASCULATURE: Calcific atherosclerosis is present in the abdominal aorta and its branch vessels. No aneurysmal dilatation is identified. LYMPH NODES: No adenopathy.. PELVIC VISCERA: Prostate gland is unremarkable. OSSEUS STRUCTURES: There is a severe, age-indeterminate compression deformity at the L1 vertebral body with 80 percent loss of vertebral body height centrally. Retropulsion of the posterior cortex and results in [id number] central canal narrowing. No additional fractures are identified. There is mild scoliotic curvature in the lumbar spine with moderate multilevel degenerative disc disease, most notable at L4-L5. Facet arthropathy is also present in the lower lumbar spine. Mild degenerative arthritis present in the hips. IMPRESSION: 1. No acute abnormalities are identified in the chest, abdomen and pelvis. Specifically, there is no evidence of metastatic disease or adenopathy. No appreciable primary lesions are identified, though sensitivity is slightly limited in the abdominal viscera and the absence of intravenous contrast material. 2. Multiple left renal cysts. These are incompletely characterized without intravenous contrast. A 1.5 cm exophytic left renal cyst is intermediate density. Consider correlation with ultrasound for more complete evaluation. 3. Severe compression deformity at the L1 vertebral body which is favored to be chronic, though correlation for symptoms in this region is advised. The retropulsion of the posterior cortex results in mild to moderate central canal stenosis. 4. Hepatic steatosis.
--- NOTE | 2016-06-21 10:11 | NUR ---
Physical Therapy: Consult received and chart reviewed. Spoke with nurse and attempted to see pt. Pt not responding to verbal, visual or tactile stimulus. Sternal rub attempted multiple times. Pt only able to shake his head no when asked if hungry in Faroese. Unable to participate in Evaluation at this time. Will follow up as appropraite. Thank you.
--- NOTE | 2016-06-21 10:56 | Cons- Neurology ---
General Information and HPI Consulting Request Date of Consult: 06/21/16 Requested By: ROBINSON PERRY,SUSAN Reason for Consult: Seizures Source of Information: family, old records, staff Exam Limitations: unable to give history, not alert/orientated, clinical condition History of Present Illness: 65 year old Armenian Citizen Of [place] man who was brought in by his brother last night for new right upper extremity weakness. A stroke alert was called, however while going to CT the patient went into a GTC. He was given Ativan 2mg that stopped the seizure and then was loaded with Keppra 1000mg at my advice. He has not seized since but has been very hypersomnolent and obtunded since. [place] [facility] [place] brother's . At the time of the interview patient himself is confused and not responsive to verbal stimuli, also he does not speak Burundian. History is obtained from his two brothers at bedside. Apparently the patient was coming back from the and was in the car when he started to become altered with his gaze fixed to the front and appearing confused. When they arrived home he was able to walk out of the car by himself and go up the stairs, but he then started to have shakiness with jerky movements most prominent on the left arm. the family denied any LOC, generalized body shakes and loss of bladder or bowel control. He walked outside the house to smoke cigarette but gradually became more confused and also started to rub the chest as if he was having a heart attack, therefore the family immediately called 911 and brought him to the ED. According to the brothers, the patient was diagnosed with lung cancer (end stage , reportedly with metastases to pancreas) and received chemotherapy. However a month ago he had a visit to his doctor who told him he is cancer free. Allergies/Medications Allergies: Coded Allergies: iodine (Unknown 06/21/16) Current Medications: Current Medications Sig/Yolis Start time Last Medication Dose Route Stop Time Status Admin Acetaminophen 1,000 MG Q6P PRN 06/21 0345 AC IV Dextrose/Sodium 1,000 ML .[id number] 06/21 0330 AC 06/21 Chloride IV 0341 Enoxaparin Sodium 40 MG DAILY 06/21 1000 AC SC Levetiracetam 500 MG Q12 06/21 1000 AC N/A 1 UNIT IV Levetiracetam 1,000 MG STAT STA 06/20 2312 DC 06/20 N/A 1 UNIT IV 06/20 2326 2320 Lorazepam 2 MG ONE ONE 06/21 0345 DC 06/21 IV 06/21 0346 0341 Lorazepam 0 .STK-MED ONE 06/21 0341 DC .ROUTE Lorazepam 0 .STK-MED ONE 06/21 0302 DC .ROUTE Lorazepam 1 MG ONCE ONE 06/21 0300 DC 06/21 IV 06/21 0301 0304 Lorazepam 2 MG ONE ONE 06/21 0300 DC / IV 06/21 0301 0206 Lorazepam 0 .STK-MED ONE 06/21 0139 DC .ROUTE Lorazepam 2 MG ONCE ONE 06/20 2345 DC 06/20 IV 06/20 2346 2345 Lorazepam 0 .STK-MED ONE 06/20 2332 DC .ROUTE Lorazepam 2 MG ONCE ONE 06/20 2315 DC 06/20 IV 06/20 2316 2310 Lorazepam 0 .STK-MED ONE 06/20 2308 DC .ROUTE Morphine Sulfate 2 MG Q4P PRN 06/21 344 AC IV Phenytoin 1,000 MG ONCE ONE 06/20 2315 CAN Sodium Chloride 250 ML IV 06/20 2346 Review of Systems Review of Systems: Unobtainable. Past History Travel History Traveled to [place] past 21 day No Medical History Blood Transfusion Hx: No Neurological: NONE EENT: NONE Cardiovascular: hypertension Respiratory: lung cancer diagnosed in Apr 2015 s/p chemo Gastrointestinal: NONE Hepatic: NONE Renal: NONE Musculoskeletal: NONE Psychiatric: NONE Endocrine: NONE Blood Disorders: NONE Cancer(s): NONE Surgical History Surgical History: non-contributory Family History Relations & Conditions If Any: Relation not specified for: Family history unknown Psychosocial History Where Do You Live? Home Services at Home: None Smoking Status: Current Some Day Smoker ETOH Use: 2 beers/day Illicit Drug Use: denies illicit drug use Functional Ability ADLs Independent: dressing, eating, toileting, bathing. Ambulation: independent IADLs Independent: shopping, housework, finances, food prep, telephone, transportation , medication admin. Exam & Diagnostic Data Vital Signs and I&O Vital Signs Date Time Temp Pulse Resp B/P Pulse O2 O2 Flow FiO2 Ox Delivery Rate 06/21 040 98 Nasal 4.0L Cannula 06/21 0316 95 Nasal 4.0L Cannula 06/21 0308 102 100 06/21 0109 96 BIPAP 06/21 0055 104 97 06/21 0037 91 121/67 06/21 0022 100 120/87 97 BIPAP 06/21 0012 109 126/86 96 BIPAP 06/20 2353 109 22 133/89 96 BIPAP 06/20 2347 108 97 06/20 2343 94 Non 10L ReBreather 06/20 2330 110 22 155/92 96 Non ReBreather 06/20 2310 184/96 06/20 2305 108 30 95 Non ReBreather Intake & Output 06/21 1600 06/21 0800 06/21 0000 Intake Total 225 Output Total 980 Balance -755 Intake, IV 225 Number 0 Bowel Movements Output, Urine 980 Patient 190 lb Weight Physical Exam: Exam limited. Hypersomnolent and obtunded. Does not respond to verbal or tactile stimuli. EOMI, PHOEBE, face seems symmetric. Does not move limbs. Toes are downgoing. Last 48 Hours of Lab Results: Laboratory Tests 06/21 06/21 0643 0632 Chemistry Sodium (137 - 145 mmol/L) 137 Potassium (3.5 - 5.1 mmol/L) 4.2 Chloride (98 - 107 mmol/L) 103 Carbon Dioxide (22 - 30 mmol/L) 26 Anion Gap (5 - 16) 8 BUN (9 - 20 mg/dL) 13 Creatinine (0.7 - 1.2 mg/dL) 0.8 Estimated GFR (>60 ml/min) > 60 BUN/Creatinine Ratio (7 - 25 %) 16.3 Lactic Acid (0.7 - 2.1 mmol/L) 1.9 GGT (15 - 73 U/L) Pending Troponin I (<0.11 ng/ml) < 0.01 Hematology CBC w Diff NO MAN DIFF REQ WBC (4.8 - 10.8 /CUMM) 12.4 H RBC (4.70 - 6.10 /CUMM) 4.33 L Hgb (14.0 - 18.0 G/DL) 15.2 Hct (42 - 52 %) 44.3 MCV (80.0 - 94.0 FL) 102.3 H MCH (27.0 - 31.0 PG) 35.0 H RDW (11.5 - 14.5 %) 15.3 H Plt Count (130 - 400 /CUMM) 82 L MPV (7.4 - 10.4 FL) 10.1 Gran % (42.2 - 75.2 %) 83.1 H Lymphocytes % (20.5 - 51.1 %) 11.0 L Monocytes % (1.7 - 9.3 %) 3.7 Eosinophils % (0 - 5 %) 2.1 Basophils % (0.0 - 2.0 %) 0.1 Absolute Granulocytes (1.4 - 6.5 /CUMM) 10.3 H Absolute Lymphocytes (1.2 - 3.4 /CUMM) 1.4 Absolute Monocytes (0.10 - 0.60 /CUMM) 0.5 Absolute Eosinophils (0.0 - 0.7 /CUMM) 0.3 Absolute Basophils (0.0 - 0.2 /CUMM) 0 PUBS MCHC (33.0 - 37.0 G/DL) 34.3 Toxicology Urine Opiates Screen (>2000 NG/ML) < 100.00 Methadone Screen (>300 NG/ML) < 40 Barbiturate Screen (>200 NG/ML) < 60 Ur Phencyclidine Scrn (>25 NG/ML) < 6.00 Amphetamines Screen (>1000 NG/ML) < 100 U Benzodiazepines Scrn (>200 NG/ML) < 85 Urine Cocaine Screen (>300 NG/ML) < 50 Urine Cannabis Screen (>50 NG/ML) < 5.00 Urines Urine Color (YEL,AMB,STR) STRAW Urine Clarity (CLEAR) CLEAR Urine pH (5.0 - 8.0) 6.5 Ur Specific [place] (1.001 - 1.035) <= 1.005 Urine Protein (NEG,<30 MG/DL) NEG Urine Ketones (NEG) NEG Urine Nitrite (NEG) NEG Urine Bilirubin (NEG) NEG Urine Urobilinogen (0.1 - 1.0 EU/dl) 0.2 Ur Leukocyte Esterase (NEG) NEG Ur Microscopic SEDIMENT EXAMINED Urine RBC (0 - 5 /HPF) 3-5 Urine WBC (0 - 2 /HPF) RARE Urine Hemoglobin (NEG) MOD H Urine Glucose (N MG/DL) NEG 06/21 06/21 06/20 0333 0050 2325 Blood Gas pH (7.35 - 7.45 PH) 7.35 pCO2 (35 - 45 TORR) 39 pO2 (80 - 100 TORR) 95 HCO3 (21 - 28 MEQ/L) 21 ABG O2 Sat (Measured) (>96.0 %) 95.0 L P-50 (Temp Corrected) Y Carboxyhemoglobin (1.5 - 5.0 %) 1.2 L O2 Concentration % 40% Temperature (97.0 - 100.0 FARH) 97.3 Respiration Rate (BPM) 24 O2 Delivery Method VISION-FFM Vent Mode ST Expiratory Pressure (CM H2O P) 6 Inspiratory Pressure (CM H2O P) 20 Chemistry Sodium (137 - 145 mmol/L) 141 Potassium (3.5 - 5.1 mmol/L) 3.5 Chloride (98 - 107 mmol/L) 100 Carbon Dioxide (22 - 30 mmol/L) 16 L Anion Gap (5 - 16) 25 H BUN (9 - 20 mg/dL) 15 Creatinine (0.7 - 1.2 mg/dL) 1.1 Estimated GFR (>60 ml/min) > 60 BUN/Creatinine Ratio (7 - 25 %) 13.6 Glucose (65 - 99 mg/dL) 151 H Lactic Acid (0.7 - 2.1 mmol/L) 2.5 H > 12.0 H Calcium (8.4 - 10.2 mg/dL) 10.8 H Phosphorus (2.5 - 4.5 mg/dL) 6.0 H Total Bilirubin (0.2 - 1.3 mg/dL) 0.6 AST (17 - 59 U/L) 51 ALT (21 - 72 U/L) 99 H Alkaline Phosphatase (< 127 U/L) 48 Troponin I (<0.11 ng/ml) < 0.01 Total Protein (6.3 - 8.2 g/dL) 8.0 Albumin (3.5 - 5.0 g/dL) 5.3 H Globulin (1.9 - 4.2 gm/dL) 2.7 Albumin/Globulin Ratio (1.1 - 2.2 %) 2.0 25-OH Vitamin D Total (30 - 100 ng/ml) 12.7 L Prolactin (3.7 - 17.9 ng/mL) 67.0 H PTH Intact (13.8 - 85 pg/ml) 52.3 Hematology CBC w Diff NO MAN DIFF REQ WBC (4.8 - 10.8 /CUMM) 15.8 H RBC (4.70 - 6.10 /CUMM) 4.77 Hgb (14.0 - 18.0 G/DL) 16.4 Hct (42 - 52 %) 49.6 MCV (80.0 - 94.0 FL) 104.1 H MCH (27.0 - 31.0 PG) 34.4 H RDW (11.5 - 14.5 %) 15.8 H Plt Count (130 - 400 /CUMM) 101 L MPV (7.4 - 10.4 FL) 10.7 H Gran % (42.2 - 75.2 %) 61.5 Lymphocytes % (20.5 - 51.1 %) 26.2 Monocytes % (1.7 - 9.3 %) 6.8 Eosinophils % (0 - 5 %) 4.9 Basophils % (0.0 - 2.0 %) 0.6 Absolute Granulocytes (1.4 - 6.5 /CUMM) 9.7 H Absolute Lymphocytes (1.2 - 3.4 /CUMM) 4.1 H Absolute Monocytes (0.10 - 0.60 /CUMM) 1.1 H Absolute Eosinophils (0.0 - 0.7 /CUMM) 0.8 Absolute Basophils (0.0 - 0.2 /CUMM) 0.1 PUBS MCHC (33.0 - 37.0 G/DL) 33.0 Miscellaneous Phlebotomy Draw Site RIGHT RADIAL Toxicology Serum Alcohol (<10 MG/DL) < 10.0 06/20 2315 Blood Gas Bicarbonate Actual (22 - 26 MEQ/L) 18.3 L Mixed VBG pH (7.31 - 7.41 PH) 6.97 L Mixed VBG pCO2 (41 - 51 TORR) 81 H Mixed VBG O2 Saturation (35 - 45 TORR) 60 H Carboxyhemoglobin (1.5 - 5.0 %) 2.5 O2 Concentration % 100% O2 Delivery Method NRB Assessment/Plan Assessment: 65 year old man who presented with GTC seizure with focality suggestive of possible cerebral structural abnormality. Concerns exist in regards to possible brain mets from lung CA. His low platelets, high MCV and elevated ALT could be indicative of his chemotherapy treatment but also of alcohol abuse. In this context if the brain MRI with contrast is normal, alcohol withdrawal seizures should be on the differential. Recommendations: 1. Order MRI brain with and without contrast. 2. C/w Keppra IV 500 q12h. 3. Check B12, folate, and GGT. 4. Banana bag. 5. EEG Thursday. Consult Acknowledgment - Thank you for your consult request.
[2016-06-21 16:00] VITALS: BP 140/80
--- NOTE | 2016-06-21 18:12 | Event Note ---
Event Note Event Note: Around 4pm, someone from [employer] requested to speak to the nurse regarding his clinical condition, as patient bought travel insurance to cover his trip here. The reason is to discuss the possibility of transferring him back to [place] if he is medically stable, including if necessary via airjet. No information was disclosed today as we are not sure if there is a consent form patient would have to signed to allow such communication. When asked if he/she would like to speak to patient's family, he/she said no. Nursing tellers supervisor was consulted, keycase assembler was called. medication manager will discuss with patient's family tomorrow morning, get appropriate consent, and further plans from there. Dr. Shrestha and I have discussed in details with the family regarding the situation and the plan. They are agreeable to taking patient back to [place] if he is medically stable. We received a fax from [employer] at 7pm (placed in chart), stating that pre -authorization of medical treatments, invasive procedure, or procedure is needed , and the insurance covers stabilization of critical conditions however further tests, treatments or surgery will be carried out in the patient home country.
--- NOTE | 2016-06-21 19:56 | NUR ---
PT BECAME GRADUALLY MORE AWAKE THROUGHOUT THE DAY. 1600 HE WAS AWAKE AND ORIENTED. PASSED BEDSIDE SWALLOW EVAL BY ICU RESIDENT , RESTRAINTS D/C/D. HE WAS MEDICATED FOR A SLIGHT HEADACHE. FAMILY VISITING AND HAVE BEEN UPDATED. NO SEIZURE ACTIVITY.
[2016-06-21 20:00] VITALS: BP 113/57
--- NOTE | 2016-06-21 20:38 | NUR ---
PT AWAKE, ALERT, ORIENTED X3-PT [place] SPEAKING-FAMILY TRANSLATING FOR PT AND ARE SPENDING THE NIGHT WITH PT TO HELP TRANSLATE. FOLLOWS COMMANDS, PUPILS EQUAL AND REACT BRISKLY TO LIGHT. NO SEIZURE ACTIVITY NOTED AT PRESENT. ON CIWA. BREATH SOUNDS CLEAR WITH DIMINISHED BREATH SOUNDS AT BASES BILATERALLY. NO COUGH, SOB OR RESP DISTRESS NOTED AT PRESENT. SEE FLOW SHEET FOR VS, 02 SATS, I/O'S. MONITOR SHOWS 1ST DEGREE AVB, NO ECTOPY NOTED AT PRESENT. BP STABLE AT PRESENT. ABD SOFT, NONTENDER, NONDISTENDED, POSITIVE BOWEL SOUNDS. MEHTA IN PLACE-DRAINING ADEQUATE AMT OF CLEAR YELLOW URINE AT PRESENT. SKIN INTACT
[2016-06-21 22:00] VITALS: BP 109/57
[2016-06-22] VITALS (10 sets, daily range): BP systolic 109–145; BP diastolic 63–86
[2016-06-22 06:11] LABS: ABSOLUTE BASOPHIL COUNT 0.1 /CUMM (0.0-0.2); ABSOLUTE EOSINOPHIL COUNT 0.3 /CUMM (0.0-0.7); ABSOLUTE GRANULOCYTE CT 4.7 /CUMM (1.4-6.5); ABSOLUTE LYMPH COUNT 1.4 /CUMM (1.2-3.4); ABSOLUTE MONOCYTE COUNT 0.4 /CUMM (0.10-0.60); BASOPHIL % 0.8 % (0.0-2.0); EOSINOPHIL % 4.5 % (0-5); GRANULOCYTE % 67.7 % (42.2-75.2); MEAN CORPUSCULAR HGB 34.7 PG (27.0-31.0); MEAN CORPUSCULAR HGB CONC 33.7 G/DL (33.0-37.0); MEAN CORPUSCULAR VOLUME 102.9 FL (80.0-94.0); MEAN PLATELET VOLUME 10.1 FL (7.4-10.4); PLATELET COUNT 76 /CUMM (130-400); RBC DISTRIBUTION WIDTH 15.3 % (11.5-14.5); RED BLOOD CELL CT 4.28 /CUMM (4.70-6.10); WHITE BLOOD CELL COUNT 6.9 /CUMM (4.8-10.8)
--- NOTE | 2016-06-22 07:24 | NUR ---
PT SLEPT MOST OF NIGHT. REMAINS A/OX3, FOLLOWING COMMANDS, PERRLA, SPEECH CLEAR. FAMILY HELPING TRANSLATE FOR PT. C/O SLIGHT HEADACHE-TYLENOL GIVEN ORDERED-SEE EMAR. SB, NO ECTOPY, BP STABLE, GOOD URINE OUTPUT. NO OTHER CHANGE IN PT ASSESSMENTS THOUGHOUT SHIFT
--- NOTE | 2016-06-22 08:18 | PN- Resident CRCU ---
Subjective HPI/CRCU Issues: Patient seen and examined this morning. He was lying comfortably in bed in no acute distress. Fully oriented to time, spaceand person, family was at bedside was able to understand and speak Danish. Patient continues to be on Keppra, EEG was done yesterday and was consulted. MRI could not be done yesterday as he was not cooperative enough. MRI had to be ordered today No acute overnight events. Objective Vital Signs & I&O Last 8 Hrs of Vitals and I&O: Laboratory Tests 06/22/16 0537: Anion Gap 3 L, Estimated GFR > 60, Glucose 165 H, Calcium 9.4, Phosphorus 3.2, Magnesium 1.8, Total Bilirubin 0.9, AST 46, ALT 75 H, Albumin 3.5, CBC w Diff NO MAN DIFF REQ, RBC 4.28 L, MCV 102.9 H, MCH 34.7 H, RDW 15.3 H, MPV 10.1, Gran % 67.7, Lymphocytes % 20.5, Monocytes % 6.5, Eosinophils % 4.5, Basophils % 0.8, Absolute Granulocytes 4.7, Absolute Lymphocytes 1.4, Absolute Monocytes 0.4 , Absolute Eosinophils 0.3, Absolute Basophils 0.1, PUBS MCHC 33.7 Vital Signs Date Time Temp Pulse Resp B/P Pulse O2 O2 Flow FiO2 Ox Delivery Rate 06/23 799 96 Nasal 2.0L Cannula 06/23 799 99.4 54 24 109/74 98 Nasal 2.0L Cannula 06/22 0600 56 19 132/82 06/22 0400 96.3 53 23 115/73 06/22 0400 98 Nasal 2.0L Cannula 06/22 0000 98.2 62 25 124/63 06/22 0000 100 Nasal 2.0L Cannula 06/22 0000 98.2 62 25 140/64 100 Nasal 2.0L Cannula 06/21 2200 63 23 109/57 06/22 1999 97.2 70 20 113/57 06/22 1999 96 Nasal 2.0L Cannula 06/22 1599 96 Nasal 2.0L Cannula 06/22 1599 98.0 78 20 140/80 98 Nasal 2.0L Cannula Intake & Output 06/22 1600 06/22 0800 06/22 0000 Intake Total 841 730 Output Total 1020 375 Balance -179 355 Intake, IV 721 530 Intake, Oral 120 200 Number 0 0 Bowel Movements Output, Urine 1020 375 Exam General Appearance: well developed/nourished, no apparent distress, alert, awake Respiratory: normal breath sounds Cardiovascular: regular rate/rhythm Gastrointestinal: normal bowel sounds, soft, non-tender Extremities: normal inspection, no edema Current Medications: Current Medications Sig/Yolis Start time Last Medication Dose Route Stop Time Status Admin Acetaminophen 325 MG Q6P PRN 06/22 0615 AC 06/22 PO 0622 Acetaminophen 650 MG ONCE ONE 06/21 1630 DC 06/21 PO 06/21 1631 1637 Acetaminophen 1,000 MG Q6P PRN 06/21 0345 AC IV Cyanocobalamin/ 1 BAG ONCE ONE 06/21 2045 DC 06/21 Thiamine/Pyridoxine IV 06/22 0644 2223 Dextrose/Water 1,000 ML Cyanocobalamin/ 1 BAG DAILY 06/21 1047 DC 06/21 Thiamine/Pyridoxine IV 06/23 1759 1230 Sodium Chloride 1,000 ML Influenza Virus 0.5 ML ONCE ONE 06/22 1999 DC Vaccine IM 06/21 2000 Levetiracetam 500 MG Q12 06/21 1000 AC 06/21 N/A 1 UNIT IV 2148 Lorazepam 1 MG Q2P PRN 06/21 1100 AC IV Magnesium Oxide 400 MG BID 06/22 1000 AC PO 06/22 2201 Morphine Sulfate 2 MG Q4P PRN 06/21 0345 AC IV Nicotine 21 MG DAILY 06/21 1515 06/21 TOP 1840 Phosphate 250 MG PC AND AT BEDTIME 06/22 0900 DC PO 06/22 1301 Senna/Docusate Sodium 1 TAB BID 06/22 1000 CAN PO Antibiotics Antibiotics? none Impression/Plan Impression/Problem List Impression: This is 65 year old male with past medical history of lung cancer status post chemotherapy now admitted with acute onset confusion and an episode of tonic- clonic seizure. Pertinent Data Labs were significant for leukocytosis of 15,800, platelet of 101, MCV of 104.1, K3.5, bicarbonate 16, BUN 15, creatinine 1.1, anion gap of 25, blood glucose of 151, lactic acid of 12, calcium of 10.8, normal LFT, negative troponin, prolactin 67, PTH 52.3, phosphorus 6, vitamin D 12.7 Alcohol <10. AB.35/39/95/[address]: no acute pathology. CXR neg. EKG: sinus tachycardia, RBBB, Qtc 465.; Chest x-ray was unremarkable EKG revealed normal sinus rhythm with first-degree AV block at rate of 107 with RBBB pattern and poor R-wave progression List of Problems Respiratory- Possible base line COPD/OHS syndrome and PAGE; Abnormal VBG, fro which he was placed and eventualy titrated off BiPaP. Currently on 2 lit of O2 sat 98%. Intensive care: PT and INR. Needs sleep study as an out patient. Infectious disease- Leukocytosis : (sepsis Vs acute stress) his altered mental status is most possibly related to other causes than sepsis and septic shock; sofa score is unreliable; no evidence of infection. Watch off antibiotics; if patients develop fever please send panculture (urine sputum and blood culture) Cardiology: NSRR, 1st degree AV block; Trops <0.01 x2 ; No active issues Hem/oncology: Patient had a one-year history of lung cancer status post chemotherapy; currently on remission. His medical records from [place] is not accessible to us at the moment. Considering his presentation and his history of lung cancer the importance diagnosis that needs to be considered are metastatic brain lesions from lung cancer, primary brain tumors and metastases with several lesions secondary to lung cancer. * No acute findings on CT scan of the abdomen and pelvis and chest. * Obtain MRI of the head with gadolinium- Patient was very agitated yesterday so could be done, ordered today. * Oncology consult ?? Throbocythopenia in a patient w/ significant Hx of EtOH drinking- * Levels upon presentation 101-82 to 76 today, no evidence of any acute bleeding. * We'll keep monitoring closely. Metabolic- Lactic acidosis :On presentation patient had lactic acidosis without evidence of sepsis and septic shock. Most possibly this observation was related to poor oral intake and dehydration. Lactic acidosis resolved. Hypercalcemia likely dehydration: PTH intact and Vit D deficiency. Neuro: Confusion and seizure in the setting of lung cancer or maybe related to withdrawl/detox from EToH. My thoughts are metastatic brain lesion secondary to, most probably ,lung cancer, primary brain tumors, primary seizure disorder or the consequence of EToH withdrawl . * As of this morning patient is fully oriented * Continue Aspiration and fall precaution * MRI of the head w/o ANAI * Continue Keppra 500 mg IV every 12 * PT and Speech therapy consult Problem List: 1. Metabolic acidosis 2. History of lung cancer in adulthood Pain Ratin Tomorrow's Labs & Rationales: bep CBC Plan DVT/Prophylaxis: mechanical
--- NOTE | 2016-06-22 09:43 | PN- CRCU ---
Subjective HPI/Critical Care Issues: pt seen and examined afebrile hemodynamically stable 98% on 2LNC no events, awake, arousable, comfortable following commands Objective Current Medications: Current Medications Sig/Yolis Start time Last Medication Dose Route Stop Time Status Admin Acetaminophen 325 MG Q6P PRN 06/22 0615 AC 06/22 PO 0622 Acetaminophen 650 MG ONCE ONE 06/21 1630 DC 06/21 PO 06/21 1631 1637 Acetaminophen 1,000 MG Q6P PRN 06/21 0345 AC IV Cyanocobalamin/ 1 BAG ONCE ONE 06/21 2045 DC 06/21 Thiamine/Pyridoxine IV 06/22 0644 2223 Dextrose/Water 1,000 ML Cyanocobalamin/ 1 BAG DAILY 06/21 1047 DC 06/21 Thiamine/Pyridoxine IV 06/23 1759 1230 Sodium Chloride 1,000 ML Dextrose/Sodium 1,000 ML .[id number] 06/21 0330 DC 06/21 Chloride IV 0341 Enoxaparin Sodium 40 MG DAILY 06/21 1000 DC SC Influenza Virus 0.5 ML ONCE ONE 06/22 1999 DC Vaccine IM 06/21 2000 Levetiracetam 500 MG Q12 06/21 1000 AC 06/21 N/A 1 UNIT IV 2148 Lorazepam 1 MG Q2P PRN 06/21 1100 AC IV Magnesium Oxide 400 MG BID 06/22 1000 AC PO 06/22 2201 Morphine Sulfate 2 MG Q4P PRN 06/21 0345 AC IV Nicotine 21 MG DAILY 06/21 1515 AC 06/21 TOP 1840 Phosphate 250 MG PC AND AT BEDTIME 06/22 0900 AC PO 06/22 1301 Senna/Docusate Sodium 1 TAB BID 06/22 1000 CAN PO Vital Signs & I&O Last 24 Hrs of Vitals and I&O: Vital Signs Date Time Temp Pulse Resp B/P Pulse O2 O2 Flow FiO2 Ox Delivery Rate 06/23 799 99.4 54 24 109/74 98 Nasal 2.0L Cannula 06/22 599 56 19 132/82 06/22 0400 96.3 53 23 115/73 06/22 0400 98 Nasal 2.0L Cannula 06/22 0000 98.2 62 25 124/63 06/22 0000 100 Nasal 2.0L Cannula 06/22 0000 98.2 62 25 140/64 100 Nasal 2.0L Cannula 06/21 2200 63 23 109/57 06/22 1999 97.2 70 20 113/57 06/22 1999 96 Nasal 2.0L Cannula 06/22 1599 96 Nasal 2.0L Cannula 06/22 1599 98.0 78 20 140/80 98 Nasal 2.0L Cannula 06/21 1306 Nasal 2.0L Cannula 06/21 1200 97 Nasal 2.0L Cannula Intake & Output 06/22 1600 06/22 0800 06/22 0000 Intake Total 841 730 Output Total 1020 375 Balance -179 355 Intake, IV 721 530 Intake, Oral 120 200 Number 0 0 Bowel Movements Output, Urine 1020 375 Exam Other Physical Findings: gen - awake heent - ncat cvs s1, s2 lungs rare rhonchi abd soft, bs+ ext without edema Results Last 24 Hrs of Lab Results: Laboratory Tests 06/22/16 0537: Anion Gap 3 L, Estimated GFR > 60, Glucose 165 H, Calcium 9.4, Phosphorus 3.2, Magnesium 1.8, Total Bilirubin 0.9, AST 46, ALT 75 H, Albumin 3.5, CBC w Diff NO MAN DIFF REQ, RBC 4.28 L, MCV 102.9 H, MCH 34.7 H, RDW 15.3 H, MPV 10.1, Gran % 67.7, Lymphocytes % 20.5, Monocytes % 6.5, Eosinophils % 4.5, Basophils % 0.8, Absolute Granulocytes 4.7, Absolute Lymphocytes 1.4, Absolute Monocytes 0.4 , Absolute Eosinophils 0.3, Absolute Basophils 0.1, PUBS MCHC 33.7 Impression/Plan Impression/Plan Impression/Plan: Impression 65 year old man * Improved Altered mental status - s/p tonic clonic seizure - differential includes neoplastic, seizure, unlikely infectious * Hx lung cancer? * tobacco dependence disorder * Left renal cysts * L1 compressoin deformity * Hepatic steatosis * Resolved lactic acidosis * Macrocytosis * Leukocytosis likely stress related * Thrombocytopenia Plan Respiratory - no acute issues - ?lung cancer without clear evidence on CT, will attempt to get records/more information ID - no acute issues, monitor wbc, fevers CVS - monitor hemodynamics, bp stable - ECHO completed, f/u results Heme - f/u coags - thrombocytopenia - will hold a/c until status of ?neoplastic disease is evaluated and thrombocytopenia precludes therapy at this time Metabolic - ins/outs, creatinine, electrolyte monitoring, lactic acid resolved Alimentary - swallow evaluation Neuro - MRI with contrast was not done due to patient lack of cooperation - neurology consultation appreciated DVT prophylaxis - ALPS, hold a/c given thrombocytopenia and possible neoplastic intracranial process TTS 35 min No tele events DG to
--- NOTE | 2016-06-22 10:36 | NUR ---
NURSING SUPERVISPER, (ABRAHAM), CASE MANAGEMENT,(NIKOLAY), AND DR. GARCIA HAVE BEEN UPDATED REGARDING PTS INSURANCE CARRIERS INFORMATION THAT HAS BEEN POSTED IN HIS CHART REQUESTED.
--- NOTE | 2016-06-22 12:17 | NUR ---
PT ALERT AND ORIENTED. OOB WALKING WITH PT. JANINE D/C/D. ECHO DONE. EATING AND DRINKING WELL. WAITING FOR GEN MED BED.
--- NOTE | 2016-06-22 17:23 | NUR ---
1706 PATIENT ARRIVED TO FLOOR ALERT AND ORIENTED X 3. VITAL SIGNS STABLE. DENIES CHEST PAIN. + PULSES ON ROOM AIR. NO DISCOMFORT NOTED. STEADY GAIT BED LOW AND LOCKED. CALL LIGHT WITHIN REACH. FAMILY AT BEDSIDE. WILL CONTINUE TO MONITOR
[2016-06-23] VITALS (7 sets, daily range): BP systolic 132–142; BP diastolic 70–76
--- NOTE | 2016-06-23 00:46 | ECHOCARDIOGRAM REPORT ---
JAYDEN BHATTI Age: 65 : 1950 Gender: M Exam Date: 06/22/2016 10:53 Exam Location: [facility] Ht (in): 72 Wt (lb): 190 BSA: 2.10 BP: 132 / 82 Ordering Physician: PAUL LAURA MD Referring Physician: PAUL LAURA MD Technologist: Kimberly Reed HARSHA Room Number: 106 Indications: CARDIOMYOPATHY Rhythm: Sinus Technical Quality: Fair FINDINGS Left Ventricle Normal size left ventricle. Borderline concentric left ventricular hypertrophy. No obvious regional wall motion abnormalities. Hyperdynamic left ventricular systolic function. Left ventricular ejection fraction is estimated at >75%. Abnormal relaxation filling pattern of the left ventricle for age (stage 1 diastolic dysfunction). Mildly increased left ventricular outflow tract velocity (1.35 m/s). Right Ventricle Right ventricle at upper limits of normal. Right Atrium Normal right atrial size. Left Atrium Normal left atrial size. Mitral Valve Minimally calcified mitral valve annulus. Mitral valve leaflets mildly thickened. Trace mitral regurgitation. Aortic Valve Trileaflet aortic valve. Mild aortic sclerosis. No aortic valve stenosis or regurgitation. Tricuspid Valve Structurally normal tricuspid valve. Trace tricuspid regurgitation. No evidence of pulmonary hypertension. Right ventricular systolic pressure estimated to be within the normal range at 22 mmHg. Pulmonic Valve Pulmonic valve not well visualized, grossly normal. No pulmonic regurgitation. Pericardium No pericardial effusion. Great Vessels Normal size aortic root. CONCLUSIONS Normal size left ventricle. Borderline concentric left ventricular hypertrophy. Hyperdynamic left ventricular systolic function. Left ventricular ejection fraction is estimated at >75%. Abnormal relaxation filling pattern of the left ventricle for age (stage 1 diastolic dysfunction). Mildly increased left ventricular outflow tract velocity (1.35 m/s). Right ventricle at upper limits of normal. Normal atrial size. Trace mitral regurgitation. Trace tricuspid regurgitation. No evidence of pulmonary hypertension. Michi Bennett M.D. (Electronically Signed) Final Date: 23 June 2016 00:45 MEASUREMENTS (Male / Female) Normal Values 2D ECHO LV Diastolic Diameter PLAX 5.0 cm 4.2 - 5.9 / 3.9 - 5.3 cm LV Systolic Diameter PLAX 2.2 cm 2.1 - 4.0 cm LV Fractional Shortening PLAX 56.0 % 25 - 46 % LV Ejection Fraction 2D Teich 86.3 % IVS Diastolic Thickness 1.0 cm LVPW Diastolic Thickness 1.1 cm LV Relative Wall Thickness 0.4 RV Internal Dim ED PLAX 3.3 cm 1.9 - 3.8 cm LVOT Diameter 1.9 cm Aortic Root Diameter 3.5 cm LA Systolic Diameter LX 3.8 cm 3.0 - 4.0 / 2.7 - 3.8 cm LA Volume 33.0 cm 18 - 58 / 22 - 52 cm Ascending Aorta Diameter 3.5 cm DOPPLER AV Peak Velocity 138.0 cm/s AV Peak Gradient 7.6 mmHg AV Mean Velocity 93.9 cm/s AV Mean Gradient 4.0 mmHg AV Velocity Time Integral 30.3 cm LVOT Peak Velocity 135.0 cm/s LVOT Peak Gradient 7.3 mmHg LVOT Mean Velocity 71.5 cm/s LVOT Mean Gradient 3.0 mmHg LVOT Velocity Time Integral 26.2 cm LVOT Stroke Volume 74.3 cm AV Area Cont Eq vti 2.5 cm AV Area Cont Eq pk 2.8 cm MV Peak Velocity 102.0 cm/s MV Peak Gradient 4.2 mmHg MV Mean Velocity 50.3 cm/s MV Mean Gradient 1.0 mmHg Mitral E Point Velocity 59.7 cm/s Mitral A Point Velocity 82.4 cm/s Mitral E to A Ratio 0.7 MV PHT Velocity 67.2 cm/s MV Deceleration Gilmer 238.0 cm/s MV Pressure Half Time 84.7 ms MV Area PHT 2.6 cm MV Deceleration Time 198.0 ms TR Peak Velocity 205.0 cm/s TR Peak Gradient 16.8 mmHg Right Atrial Pressure 5.0 mmHg Pulmonary Artery Systolic Pressu 21.8 mmHg Right Ventricular Systolic Press 21.8 mmHg PV Peak Velocity 103.0 cm/s PV Peak Gradient 4.2 mmHg PV Mean Velocity 69.9 cm/s PV Mean Gradient 2.0 mmHg PV Velocity Time Integral 23.8 cm LV E' Lateral Velocity 7.7 cm/s Mitral E to LV E' Lateral Ratio 7.8 LV E' Septal Velocity 6.5 cm/s Mitral E to LV E' Septal Ratio 9.1
[2016-06-23 07:50] LABS: ABSOLUTE BASOPHIL COUNT 0.1 /CUMM (0.0-0.2); ABSOLUTE EOSINOPHIL COUNT 0.4 /CUMM (0.0-0.7); ABSOLUTE LYMPH COUNT 1.3 /CUMM (1.2-3.4); ABSOLUTE MONOCYTE COUNT 0.5 /CUMM (0.10-0.60); BASOPHIL % 0.8 % (0.0-2.0); EOSINOPHIL % 6.1 % (0-5); GRANULOCYTE % 64.3 % (42.2-75.2); HEMATOCRIT 44.6 % (42-52); MEAN CORPUSCULAR HGB 34.9 PG (27.0-31.0); MEAN CORPUSCULAR HGB CONC 34.1 G/DL (33.0-37.0); MEAN CORPUSCULAR VOLUME 102.2 FL (80.0-94.0); MEAN PLATELET VOLUME 9.6 FL (7.4-10.4); PLATELET COUNT 83 /CUMM (130-400); RBC DISTRIBUTION WIDTH 15.6 % (11.5-14.5); RED BLOOD CELL CT 4.36 /CUMM (4.70-6.10); WHITE BLOOD CELL COUNT 6.2 /CUMM (4.8-10.8)
--- NOTE | 2016-06-23 08:48 | PN- Housestaff ---
KADEEM PERRY,JOVANA 06/23/16 0848: Subjective Follow-up For: Seizures Subjective: Patient is seen and examined while laying comfortable in bed with family members in the room. Patient is Thai speaking only, translation was facilitated by medical student in all medical team was fluent in Thai. Patient does not endorse any new complaint including overnight seizure episodes, tremors, increased anxiety, altered mental status, fever, chills, chest pain, palpitation , nausea, vomiting or abdominal pain or dysuria. Review of Systems Constitutional: Reports: no symptoms. Objective Last 24 Hrs of Vital Signs/I&O Vital Signs Date Time Temp Pulse Resp B/P Pulse O2 O2 Flow FiO2 Ox Delivery Rate 06/23 1424 98.4 93 20 142/70 90 Room Air 06/23 1200 97.9 64 20 132/76 06/23 0626 97.9 64 20 132/76 92 / 2310 97.9 66 20 145/86 / 2110 97.9 66 20 145/86 / 2110 97.9 66 20 145/86 94 Room Air 06/22 1906 98.1 91 18 130/80 04/ 1710 98.1 91 18 130/80 93 Room Air 06/22 1706 98.1 91 18 130/80 / 1706 97.8 58 20 120/78 98 Room Air Intake & Output 06/23 1600 06/23 0800 06/23 0000 Intake Total 1540 240 400 Output Total Balance 1540 240 400 Intake, IV 300 Intake, Oral 1240 240 400 Number 2 Bowel Movements Physical Exam General Appearance: Alert, Oriented X3, Cooperative Cardiovascular: Regular Rate, Normal S1, Normal S2 Lungs: Clear to Auscultation, Normal Air Movement Abdomen: Normal Bowel Sounds, Soft, No Tenderness, No Hepatospenomegaly, No Masses Neurological: Sensation Intact, Cranial Nerves 3-12 NL Extremities: No Tenderness/Swelling Vascular: Normal Pulses, Pulses Symmetrical Assessment/Plan Assessment: 65 year old Thai Ch[place] man with known PMH of lung cancer who is BIBA after family noticed that the patient is behaving differently, appearing to be 'fixed' and 'confused'. Patient was here in [place] coming from [facility] to attend his brother's . At the time of the interview patient himself is confused and not responsive to verbal stimuli. History was obtained from his two brothers at bedside. Apparently the patient was coming back from the and was in the car when he started to become altered with his gaze fixed to the front and appearing confused. When they arrived home he was able to walk out of the car by himself and go up the stairs, but he then started to have shakiness with jerky movements most prominent on the left arm. The family denied any LOC, generalized body shakes and loss of bladder or bowel control. He walked outside the house to smoke cigarette but gradually became more confused and also started to rub the chest as if he was having a heart attack, therefore the family immediately called 911 and brought him to the ED. Patient's family said he did not have such symptoms in the past, reported that he appeared healthy until this incident , no fever, chills, SOB, URI symptoms, or GI problems. Patient's complete medical history was unavailable on admission. According to the brothers, the patient was diagnosed with lung cancer (end stage, reportedly with metastases to pancreas) and received chemotherapy. However a month ago he had a visit to his doctor who told him he is cancer free. Upon arrival, stroke alert was activated for the patient and he went directly to the CT scan unit. After that the patient developed tonic-clonic (grandmal) seizures lasting 4-5 min that responded to Ativan. Neurology called, patient was loaded with 1 gram load of Keppra, no repeat episodes of seizure but he was hypersomnolent and obtunded Pertinent Data Labs were significant for leukocytosis of 15,800, platelet of 101, MCV of 104.1, K3.5, bicarbonate 16, BUN 15, creatinine 1.1, anion gap of 25, blood glucose of 151, lactic acid of 12, calcium of 10.8, normal LFT, negative troponin, prolactin 67, PTH 52.3, phosphorus 6, vitamin D 12.7 Alcohol <10. AB.35/39/95/[address]: no acute pathology. CXR neg. EKG: sinus tachycardia, RBBB, Qtc 465.; Chest x-ray was unremarkable EKG revealed normal sinus rhythm with first-degree AV block at rate of 107 with RBBB pattern and poor R-wave progression Problem List: * Altered mental status * Hx lung cancer * tobacco dependence disorder * Left renal cysts * L1 compressoin deformity * Hepatic steatosis * Resolved lactic acidosis * Macrocytosis * Leukocytosis likely stress related * Thrombocytopenia Complications: None Assessment/Plan: He was admitted to ICU and managed for the following conditions: Altered mental status: -s/p tonic clonic seizure - differential includes neoplastic (in setting of history of lung cancer), seizure, unlikely infectious. He was closely monitored in ICU, neuro checks every one. Head CT was done which did not show any acute intracranial findings, MRI was not done initially secondary to patient being agitated. He was continued on Keppra 500 mg IV every 12, Ativan 2 mg Q2 per [facility], PT and Speech therapy consult. * Patient was alert and oriented as per my evaluation 06/22, no repeat episodes of seizure, No neurological deficits. History of lung cancer status post chemotherapy: Patient had a one-year history of lung cancer status post chemotherapy; His medical records from [place] is not accessible to us during his stay. Considering his presentation and his history of lung cancer the importance diagnosis that needs to be considered are metastatic brain lesions from lung cancer, primary brain tumors and metastases with several lesions secondary to lung cancer. * No acute findings on CT scan of the chest, abdomen and pelvis except multiple left renal cysts (please attach CT abd/pelvis/chest to discharge summary) * Patient needs to follow-up with him oncology for further evaluation. Throbocythopenia in setting of EtOH drinking: * Levels upon presentation 101-82 to 76 to 83 today, no evidence of any acute bleeding. * Keep monitoring closely. * Patient was given banana bag initially followed by Folic acid/MV/thiamine. * Ativan per [facility] Lactic acidosis: * Resolved Disposition: Due to insurance logistic it wass and family members opted for further workup of EEG and MRI to be done in the home town in [place]. Patient will be airlifted today during evening time enroute to [place]. DVT prophylaxis with subcutaneous heparin Patient is full code. Problem List: 1. Seizure Pain Ratin Pain Location: none Pain Goal: Remain pain free Pain Plan: per pain pathway Tomorrow's Labs & Rationales: none-discharge FRANDY,DIANA 06/23/16 1207: Attending MD Review Statement Attending Statement Attending MD Statement: examined this patient, discuss w/resident/PA/GEOTECHNICIAN, agreed w/resident/PA/GEOTECHNICIAN, discussed with family, reviewed EMR data (avail), discussed with nursing, discussed with case mgmt, reviewed images Attending Assessment/Plan: 65 o/m with significant pmh of lung cancer comes with ams and tonic clonic seizure. Neurology consulted and recommends: "65 year old man who presented with GTC seizure with focality suggestive of possible cerebral structural abnormality. Concerns exist in regards to possible brain mets from lung CA. His low platelets, high MCV and elevated ALT could be indicative of his chemotherapy treatment but also of alcohol abuse. In this context if the brain MRI with contrast is normal, alcohol withdrawal seizures should be on the differential. 1. Order MRI brain with and without contrast. 2. C/w Keppra IV 500 q12h. 4. Banana bag. 5. EEG." Patient family wants to take patient to [place] for further evaluation. Patient is vitally stable, aaox 3 oriented and capable of making his own decisions. Patient and family explained in detail about patient clinical condition and risks/benefits of medical therapy in serbian ([place] language). Patient can be discharged in satisfatcory condition.
--- NOTE | 2016-06-23 09:01 | PN- Student ---
Subjective Subjective: Afebril, hemodynamically stable. No acute overnight events reported. Patient denies any current complaint. Objective Objective: Vital Signs Date Time Temp Pulse Resp B/P Pulse O2 O2 Flow FiO2 Ox Delivery Rate 06/23 0626 97.9 64 20 132/76 92 06/22 2310 97.9 66 20 145/86 06/22 2110 97.9 66 20 145/86 06/22 2110 97.9 66 20 145/86 94 Room Air 06/22 1906 98.1 91 18 130/80 06/22 1710 98.1 91 18 130/80 93 Room Air 06/22 1706 98.1 91 18 130/80 06/22 1706 97.8 58 20 120/78 98 Room Air Intake & Output 06/23 1600 06/23 0800 06/23 0000 Intake Total 240 400 Output Total Balance 240 400 Intake, Oral 240 400 Physical Exam General Appearance Alert, Oriented x3, Cooperative Skin No Rashes, No Breakdown, No Significant Lesion HEENT Atraumatic, EOMI, Mucous Membr. moist/pink, pupils equal and reactive to light Neck Supple Cardiovascular Regular Rate, Normal S1, Normal S2, No Murmurs Lungs Normal Air Movement Abdomen Soft, distended, umbilical hernia noted Neurological Normal Tone Extremities No Edema, Normal Pulses, No Tenderness/Swelling Vascular Pulses Symmetrical Current Medications Sig/Yolis Start time Last Medication Dose Route Stop Time Status Admin Acetaminophen 325 MG Q6P PRN 06/22 0615 AC 06/22 PO 0622 Acetaminophen 1,000 MG Q6P PRN 06/21 0345 AC IV Levetiracetam 500 MG Q12 06/21 1000 06/23 N/A 1 UNIT IV 1146 Lorazepam 1 MG Q2P PRN 06/21 1100 AC IV Magnesium Oxide 400 MG BID 06/22 1000 DC 06/22 PO 06/22 2201 2203 Morphine Sulfate 2 MG Q4P PRN 06/21 0345 AC IV Nicotine 21 MG DAILY 06/21 1515 06/23 TOP 1231 Results Results: Laboratory Tests 06/23/16 0630: Anion Gap 8, Estimated GFR > 60, BUN/Creatinine Ratio 14.4, CBC w Diff NO MAN DIFF REQ, RBC 4.36 L, MCV 102.2 H, MCH 34.9 H, RDW 15.6 H, MPV 9.6, Gran % 64.3, Lymphocytes % 21.5, Monocytes % 7.3, Eosinophils % 6.1 H, Basophils % 0.8 , Absolute Granulocytes 4.0, Absolute Lymphocytes 1.3, Absolute Monocytes 0.5, Absolute Eosinophils 0.4, Absolute Basophils 0.1, PUBS MCHC 34.1 06/22/16 0537: Anion Gap 3 L, Estimated GFR > 60, Glucose 165 H, Calcium 9.4, Phosphorus 3.2, Magnesium 1.8, Total Bilirubin 0.9, AST 46, ALT 75 H, Albumin 3.5, CBC w Diff NO MAN DIFF REQ, RBC 4.28 L, MCV 102.9 H, MCH 34.7 H, RDW 15.3 H, MPV 10.1, Gran % 67.7, Lymphocytes % 20.5, Monocytes % 6.5, Eosinophils % 4.5, Basophils % 0.8, Absolute Granulocytes 4.7, Absolute Lymphocytes 1.4, Absolute Monocytes 0.4 , Absolute Eosinophils 0.3, Absolute Basophils 0.1, [facility] MCHC 33.7 06/21/16 0916: PT Cancelled, INR Cancelled 06/21/16 0643: Urine Opiates Screen < 100.00, Methadone Screen < 40, Barbiturate Screen < 60, Ur Phencyclidine Scrn < 6.00, Amphetamines Screen < 100, U Benzodiazepines Scrn < 85, Urine Cocaine Screen < 50, Urine Cannabis Screen < 5.00, Urine Color STRAW , Urine Clarity CLEAR, Urine pH 6.5, Ur Specific [place] <= 1.005, Urine Protein NEG, Urine Ketones NEG, Urine Nitrite NEG, Urine Bilirubin NEG, Urine Urobilinogen 0.2, Ur Leukocyte Esterase NEG, Ur Microscopic SEDIMENT EXAMINED, Urine RBC 3-5, Urine WBC RARE, Urine Hemoglobin MOD H, Urine Glucose NEG 06/21/16 0632: Anion Gap 8, Estimated GFR > 60, BUN/Creatinine Ratio 16.3, Lactic Acid 1.9, Magnesium 1.8, GGT 53, Troponin I < 0.01, Vitamin B12 732, Folate 12.2, CBC w Diff NO MAN DIFF REQ, RBC 4.33 L, MCV 102.3 H, MCH 35.0 H, RDW 15.3 H, MPV 10.1, Gran % 83.1 H, Lymphocytes % 11.0 L, Monocytes % 3.7, Eosinophils % 2.1, Basophils % 0.1, Absolute Granulocytes 10.3 H, Absolute Lymphocytes 1.4, Absolute Monocytes 0.5, Absolute Eosinophils 0.3, Absolute Basophils 0, PUBS MCHC 34.3 06/21/16 0333: Lactic Acid 2.5 H 06/21/16 0050: pH 7.35, pCO2 39, pO2 95, HCO3 21, ABG O2 Sat (Measured) 95.0 L, P-50 (Temp Corrected) Y, Carboxyhemoglobin 1.2 L, O2 Concentration % 40%, Temperature 97.3 , Respiration Rate 24, O2 Delivery Method VISION-FFM, Vent Mode ST, Expiratory Pressure 6, Inspiratory Pressure 20, Phlebotomy Draw Site RIGHT RADIAL 06/20/16 2325: Anion Gap 25 H, Estimated GFR > 60, BUN/Creatinine Ratio 13.6, Glucose 151 H, Lactic Acid > 12.0 H, Calcium 10.8 H, Phosphorus 6.0 H, Total Bilirubin 0.6, AST 51, ALT 99 H, Alkaline Phosphatase 48, Troponin I < 0.01, Total Protein 8.0 , Albumin 5.3 H, Globulin 2.7, Albumin/Globulin Ratio 2.0, 25-OH Vitamin D Total 12.7 L, Prolactin 67.0 H, PTH Intact 52.3, CBC w Diff NO MAN DIFF REQ, RBC 4.77, MCV 104.1 H, MCH 34.4 H, RDW 15.8 H, MPV 10.7 H, Gran % 61.5, Lymphocytes % 26.2, Monocytes % 6.8, Eosinophils % 4.9, Basophils % 0.6, Absolute Granulocytes 9.7 H, Absolute Lymphocytes 4.1 H, Absolute Monocytes 1.1 H, Absolute Eosinophils 0.8, Absolute Basophils 0.1, PUBS MCHC 33.0, Serum Alcohol < 10.0 06/20/16 2315: Bicarbonate Actual 18.3 L, Mixed VBG pH 6.97 L, Mixed VBG pCO2 81 H, Mixed VBG O2 Saturation 60 H, Carboxyhemoglobin 2.5, O2 Concentration % 100%, O2 Delivery Method NRB Microbiology 06/21 638 BLOOD: Blood Culture - RES 06/21 0532 BLOOD: Blood Culture - RES 06/21 414 UPPER RESP: Surveillance Culture - COMP 06/21 414 GI: Surveillance Culture - COMP 04/08 0110 URINE ROUT: Urine Culture - RES Assessment/Plan Assessment: Altered mental status: -s/p tonic clonic seizure - differential includes neoplastic (in setting of history of lung cancer), seizure, unlikely infectious. He was closely monitored in ICU, neuro checks every one. Head CT was done which did not show any acute intracranial findings, MRI was not done initially secondary to patient being agitated. He was continued on Keppra 500 mg IV every 12, Ativan 2 mg Q2 per [facility], PT and Speech therapy consult. * Patient was alert and oriented as per my evaluation 06/22, no repeat episodes of seizure, No neurological deficits. History of lung cancer status post chemotherapy: Patient had a one-year history of lung cancer status post chemotherapy; His medical records from [place] is not accessible to us during his stay. Considering his presentation and his history of lung cancer the importance diagnosis that needs to be considered are metastatic brain lesions from lung cancer, primary brain tumors and metastases with several lesions secondary to lung cancer. * No acute findings on CT scan of the chest, abdomen and pelvis except multiple left renal cysts (please attach CT abd/pelvis/chest to discharge summary) * Patient needs to follow-up with him oncology for further evaluation. Throbocythopenia in setting of EtOH drinking: * Levels upon presentation 101-82 to 76 to 83 today, no evidence of any acute bleeding. * Keep monitoring closely. * Patient was given banana bag initially followed by Folic acid/MV/thiamine. * Ativan per [facility] Lactic acidosis: * Resolved Patient was initially kept nothing by mouth, but then transitioned to by mouth diet as tolerated. DVT prophylaxis with subcutaneous heparin Patient is full code.
--- NOTE | 2016-06-23 10:03 | Transfer of Care Summary ---
Hospital Course Course Hospital Course: 65 year old Afghan Australian man with known PMH of lung cancer who is BIBA after family noticed that the patient is behaving differently, appearing to be 'fixed' and 'confused'. Patient was here in [place] coming from [facility] to attend his brother's . At the time of the interview patient himself is confused and not responsive to verbal stimuli. History was obtained from his two brothers at bedside. Apparently the patient was coming back from the and was in the car when he started to become altered with his gaze fixed to the front and appearing confused. When they arrived home he was able to walk out of the car by himself and go up the stairs, but he then started to have shakiness with jerky movements most prominent on the left arm. The family denied any LOC, generalized body shakes and loss of bladder or bowel control. He walked outside the house to smoke cigarette but gradually became more confused and also started to rub the chest as if he was having a heart attack, therefore the family immediately called 911 and brought him to the ED. Patient's family said he did not have such symptoms in the past, reported that he appeared healthy until this incident , no fever, chills, SOB, URI symptoms, or GI problems. Patient's complete medical history was unavailable on admission. According to the brothers, the patient was diagnosed with lung cancer (end stage, reportedly with metastases to pancreas) and received chemotherapy. However a month ago he had a visit to his doctor who told him he is cancer free. Upon arrival, stroke alert was activated for the patient and he went directly to the CT scan unit. After that the patient developed tonic-clonic (grandmal) seizures lasting 4-5 min that responded to Ativan. Neurology called, patient was loaded with 1 gram load of Keppra, no repeat episodes of seizure but he was hypersomnolent and obtunded Pertinent Data Labs were significant for leukocytosis of 15,800, platelet of 101, MCV of 104.1, K3.5, bicarbonate 16, BUN 15, creatinine 1.1, anion gap of 25, blood glucose of 151, lactic acid of 12, calcium of 10.8, normal LFT, negative troponin, prolactin 67, PTH 52.3, phosphorus 6, vitamin D 12.7 Alcohol <10. AB.35/39/95/[address]: no acute pathology. CXR neg. EKG: sinus tachycardia, RBBB, Qtc 465.; Chest x-ray was unremarkable EKG revealed normal sinus rhythm with first-degree AV block at rate of 107 with RBBB pattern and poor R-wave progression Problem List: * Altered mental status * Hx lung cancer * tobacco dependence disorder * Left renal cysts * L1 compressoin deformity * Hepatic steatosis * Resolved lactic acidosis * Macrocytosis * Leukocytosis likely stress related * Thrombocytopenia Complications: None Assessment/Plan: He was admitted to ICU and managed for the following conditions: Altered mental status: -s/p tonic clonic seizure - differential includes neoplastic (in setting of history of lung cancer), seizure, unlikely infectious. He was closely monitored in ICU, neuro checks every one. Head CT was done which did not show any acute intracranial findings, MRI was not done initially secondary to patient being agitated. He was continued on Keppra 500 mg IV every 12, Ativan 2 mg Q2 per [facility], PT and Speech therapy consult. * Patient was alert and oriented as per my evaluation 06/22, no repeat episodes of seizure, No neurological deficits. History of lung cancer status post chemotherapy: Patient had a one-year history of lung cancer status post chemotherapy; His medical records from [place] is not accessible to us during his stay. Considering his presentation and his history of lung cancer the importance diagnosis that needs to be considered are metastatic brain lesions from lung cancer, primary brain tumors and metastases with several lesions secondary to lung cancer. * No acute findings on CT scan of the chest, abdomen and pelvis except multiple left renal cysts (please attach CT abd/pelvis/chest to discharge summary) * Patient needs to follow-up with him oncology for further evaluation. Throbocythopenia in setting of EtOH drinking: * Levels upon presentation 101-82 to 76 to 83 today, no evidence of any acute bleeding. * Keep monitoring closely. * Patient was given banana bag initially followed by Folic acid/MV/thiamine. * Ativan per [facility] Lactic acidosis: * Resolved Patient was initially kept nothing by mouth, but then transitioned to by mouth diet as tolerated. DVT prophylaxis with subcutaneous heparin Patient is full code. Attending MD Review Statement Documenting Attending: KRISTIN GARCIA MD
--- NOTE | 2016-06-23 11:10 | Discharge Summary ---
Visit Information Visit Dates Admission Date: 06/21/16 Discharge Date: 06/23/2016 Hospital Course Course Attending Physician: DIANA WISE MD Primary Care Physician: PATIENT HAS NO PRIMARY CARE DR Hospital Course: Hospital Course: 65 year old [place]ag[place] man with known PMH of lung cancer who is BIBA after family noticed that the patient is behaving differently, appearing to be 'fixed' and 'confused'. [place] was here [place] [facility] [place] . At the time of the interview patient himself is confused and not responsive to verbal stimuli. History was obtained from his two brothers at bedside. Apparently the patient was coming back from the and was in the car when he started to become altered with his gaze fixed to the front and appearing confused. When they arrived home he was able to walk out of the car by himself and go up the stairs, but he then started to have shakiness with jerky movements most prominent on the left arm. The family denied any LOC, generalized body shakes and loss of bladder or bowel control. He walked outside the house to smoke cigarette but gradually became more confused and also started to rub the chest as if he was having a heart attack, therefore the family immediately called 911 and brought him to the ED. Patient's family said he did not have such symptoms in the past, reported that he appeared healthy until this incident , no fever, chills, SOB, URI symptoms, or GI problems. Patient's complete medical history was unavailable on admission. According to the brothers, the patient was diagnosed with lung cancer (end stage, reportedly with metastases to pancreas) and received chemotherapy. However a month ago he had a visit to his doctor who told him he is cancer free. Upon arrival, stroke alert was activated for the patient and he went directly to the CT scan unit. After that the patient developed tonic-clonic (grandmal) seizures lasting 4-5 min that responded to Ativan. Neurology called, patient was loaded with 1 gram of Keppra, no repeat episodes of seizure but he was hypersomnolent and obtunded. Pertinent Data Labs were significant for leukocytosis of 15,800, platelet of 101, MCV of 104.1, K3.5, bicarbonate 16, BUN 15, creatinine 1.1, anion gap of 25, blood glucose of 151, lactic acid of 12, calcium of 10.8, normal LFT, negative troponin, prolactin 67, PTH 52.3, phosphorus 6, vitamin D 12.7 Alcohol <10. AB.35/39/95/[address]: no acute pathology. CXR neg. EKG: sinus tachycardia, RBBB, Qtc 465.; Chest x-ray was unremarkable EKG revealed normal sinus rhythm with first-degree AV block at rate of 107 with RBBB pattern and poor R-wave progression Problem List: * Altered mental status * Hx lung cancer * tobacco dependence disorder * Left renal cysts * L1 compressoin deformity * Hepatic steatosis * Resolved lactic acidosis * Macrocytosis * Leukocytosis likely stress related * Thrombocytopenia Complications: None Assessment/Plan: He was admitted to ICU and managed for the following conditions: Altered mental status: -s/p tonic clonic seizure - differential includes neoplastic (in setting of history of lung cancer), seizure, unlikely infectious. He was closely monitored in ICU, neuro checks every one. Head CT was done which did not show any acute intracranial findings, MRI was not done initially secondary to patient being agitated. He was continued on Keppra 500 mg IV every 12, Ativan 2 mg Q2 per CIWA, PT and Speech therapy consult. * Patient was alert and oriented as per my evaluation 06/22, no repeat episodes of seizure, No neurological deficits. History of lung cancer status post chemotherapy: Patient had a one-year history of lung cancer status post chemotherapy; His medical records from [facility] is not accessible to us during his stay. Considering his presentation and his history of lung cancer the importance diagnosis that needs to be considered are metastatic brain lesions from lung cancer, primary brain tumors and metastases with several lesions secondary to lung cancer. * No acute findings on CT scan of the chest, abdomen and pelvis except multiple left renal cysts. * Patient needs to follow-up with oncology for further evaluation. Throbocythopenia in setting of EtOH drinking: * Levels upon presentation 101-82 to 76 to 83 today, no evidence of any acute bleeding. * Keep monitoring closely. * Patient was given banana bag initially followed by Folic acid/MV/thiamine. * Ativan per CIWA Lactic acidosis: * Resolved Patient was initially kept nothing by mouth, but then transitioned to by mouth diet as tolerated. DVT prophylaxis with subcutaneous heparin Patient is full code. #Disposition Pt will be airlifted to [facility] for futher management with EEG and MRI. Dr TAY is the accepting Doctor. Allergies: Coded Allergies: iodine (Unknown 06/21/16) Significant Procedures: SERVICE DATE: 06/20/16 EXAM TYPE: CAT - CT HEAD WO IV CONTRAST EXAMINATION: CT HEAD WITHOUT CONTRAST CLINICAL INFORMATION: Altered mental status. CVA. COMPARISON: None TECHNIQUE: Contiguous axial imaging was performed from the skull base to vertex without intravenous administration of contrast. DLP: 600.71 mGy-cm FINDINGS: There is no evidence of acute intracranial hemorrhage or territorial infarction. No abnormal mass effect or midline shift is seen. Shah to white matter differentiation is well preserved. No extra-axial fluid collections are identified. The ventricles are normal in size. There is no abnormal attenuation within the brain parenchyma. The osseous structures and soft tissues are normal. The mastoid air cells and visualized portions of the paranasal sinuses are well aerated. IMPRESSION: No acute intracranial pathology. This critical result was discussed with Dr. Red on 11:15 PM, and it was ascertained that the content and urgency of the report was understood at the time of direct communication. DICTATED BY: ADI LOZADA MD SERVICE DATE: 06/21/16- EXAM TYPE: CAT - CT ABD & PELVIS W/O IV CONTRAS; CT CHEST WO IV CONTRAST EXAMINATION: CT CHEST WITHOUT CONTRAST CT ABDOMEN AND PELVIS WITHOUT CONTRAST CLINICAL INFORMATION: Presumptive Dx: Brain metastasis. Signs Symptoms: seizure COMPARISON: No pertinent prior studies are available for comparison. TECHNIQUE: Multidetector volumetric imaging was performed from the thoracic inlet through the pubic symphysis. Sagittal and coronal images were reformatted. DOSE: 976.7 mGy-cm FINDINGS: -CHEST- LUNG: Dependent atelectasis is present within the lower lobes bilaterally with subsegmental platelike atelectasis in the lung bases, right greater than left. No focal consolidation. Central airways are clear. Calcified granulomas are present in the upper lobes posteriorly near the apices. No suspicious pulmonary nodules are identified. MEDIASTINUM: Ascending thoracic aorta is borderline ectatic. Heart is normal in size. No pericardial effusion. No hilar or mediastinal lymphadenopathy. PERICARDIUM/PLEURA: No significant effusion. No pleural mass or thickening. CHEST WALL/AXILLA: Unremarkable. -ABDOMEN/PELVIS- LIVER, GALLBLADDER, BILIARY TREE: Hypoattenuation of the hepatic parenchyma is consistent with steatosis. Areas of focal fatty sparing are seen around the gallbladder fossa. Gallbladder is normal in size without apparent inflammatory changes or radiodense gallstones. PANCREAS: Unremarkable. SPLEEN: Unremarkable. ADRENAL GLANDS: Unremarkable. KIDNEYS AND URETERS: There is a 2.2 cm focus of hypoattenuation in the left kidney which is water density, incompletely characterized on this study but most likely a cyst. An exophytic 1.5 cm focus at the lateral aspect of the interpolar region of the left kidney is more intermediate density, though likely more complex cyst. Multiple subcentimeter foci of hypoattenuation are present and too small to characterize. No nephrolithiasis or hydronephrosis. Kidneys normal in size. There is perinephric stranding at the left kidney, potentially chronic. Ureters are unremarkable. BLADDER: Marina catheter terminates within the bladder. There is a catheter related gas within the bladder anteriorly. No significant inflammatory changes are present. GASTROINTESTINAL TRACT: Stomach, small bowel, and colon are normal in caliber. No significant bowel wall thickening or surrounding inflammatory changes are identified. Appendix is normal. There is a moderate amount of stool throughout the colon. ABDOMINAL WALL: There is a fat-containing umbilical hernia which is moderate in size. Haziness of the omental fat just deep to this hernia is suggested this may be a mild degree of inflammation/irritation as result of the hernia. VASCULATURE: Calcific atherosclerosis is present in the abdominal aorta and its branch vessels. No aneurysmal dilatation is identified. LYMPH NODES: No adenopathy.. PELVIC VISCERA: Prostate gland is unremarkable. OSSEUS STRUCTURES: There is a severe, age-indeterminate compression deformity at the L1 vertebral body with 80 percent loss of vertebral body height centrally. Retropulsion of the posterior cortex and results in [id number] central canal narrowing. No additional fractures are identified. There is mild scoliotic curvature in the lumbar spine with moderate multilevel degenerative disc disease, most notable at L4-L5. Facet arthropathy is also present in the lower lumbar spine. Mild degenerative arthritis present in the hips. IMPRESSION: 1. No acute abnormalities are identified in the chest, abdomen and pelvis. Specifically, there is no evidence of metastatic disease or adenopathy. No appreciable primary lesions are identified, though sensitivity is slightly limited in the abdominal viscera and the absence of intravenous contrast material. 2. Multiple left renal cysts. These are incompletely characterized without intravenous contrast. A 1.5 cm exophytic left renal cyst is intermediate density. Consider correlation with ultrasound for more complete evaluation. 3. Severe compression deformity at the L1 vertebral body which is favored to be chronic, though correlation for symptoms in this region is advised. The retropulsion of the posterior cortex results in mild to moderate central canal stenosis. 4. Hepatic steatosis. DICTATED BY: JESE MEJIA MD DATE/TIME DICTATED:06/21/16911 SERVICE DATE: 06/22/16- EXAM TYPE: CARD - ECHOCARDIOGRAM JAYDEN BHATTI Age: 65 : 1950 Gender: M Exam Date: 06/22/2016 10:53 Exam Location: 1 [place] Ht (in): 72 Wt (lb): 190 BSA: 2.10 BP: 132 / 82 Ordering Physician: PAUL LAURA MD Referring Physician: PAUL LAURA MD Technologist: Kimberly Reed RDCS Room Number: 106 Indications: CARDIOMYOPATHY Rhythm: Sinus Technical Quality: Fair FINDINGS Left Ventricle Normal size left ventricle. Borderline concentric left ventricular hypertrophy. No obvious regional wall motion abnormalities. Hyperdynamic left ventricular systolic function. Left ventricular ejection fraction is estimated at >75%. Abnormal relaxation filling pattern of the left ventricle for age (stage 1 diastolic dysfunction). Mildly increased left ventricular outflow tract velocity (1.35 m/s). Right Ventricle Right ventricle at upper limits of normal. Right Atrium Normal right atrial size. Left Atrium Normal left atrial size. Mitral Valve Minimally calcified mitral valve annulus. Mitral valve leaflets mildly thickened. Trace mitral regurgitation. Aortic Valve Trileaflet aortic valve. Mild aortic sclerosis. No aortic valve stenosis or regurgitation. Tricuspid Valve Structurally normal tricuspid valve. Trace tricuspid regurgitation. No evidence of pulmonary hypertension. Right ventricular systolic pressure estimated to be within the normal range at 22 mmHg. Pulmonic Valve Pulmonic valve not well visualized, grossly normal. No pulmonic regurgitation. Pericardium No pericardial effusion. Great Vessels Normal size aortic root. CONCLUSIONS Normal size left ventricle. Borderline concentric left ventricular hypertrophy. Hyperdynamic left ventricular systolic function. Left ventricular ejection fraction is estimated at >75%. Abnormal relaxation filling pattern of the left ventricle for age (stage 1 diastolic dysfunction). Mildly increased left ventricular outflow tract velocity (1.35 m/s). Right ventricle at upper limits of normal. Normal atrial size. Trace mitral regurgitation. Trace tricuspid regurgitation. No evidence of pulmonary hypertension. Dexter Sigala M.D. (Electronically Signed) Final Date: 23 June 2016 00:45 MEASUREMENTS (Male / Female) Normal Values 2D ECHO LV Diastolic Diameter PLAX 5.0 cm 4.2 - 5.9 / 3.9 - 5.3 cm LV Systolic Diameter PLAX 2.2 cm 2.1 - 4.0 cm LV Fractional Shortening PLAX 56.0 % 25 - 46 % LV Ejection Fraction 2D Teich 86.3 % IVS Diastolic Thickness 1.0 cm LVPW Diastolic Thickness 1.1 cm LV Relative Wall Thickness 0.4 RV Internal Dim ED PLAX 3.3 cm 1.9 - 3.8 cm LVOT Diameter 1.9 cm Aortic Root Diameter 3.5 cm LA Systolic Diameter LX 3.8 cm 3.0 - 4.0 / 2.7 - 3.8 cm LA Volume 33.0 cm 18 - 58 / 22 - 52 cm Ascending Aorta Diameter 3.5 cm DOPPLER AV Peak Velocity 138.0 cm/s AV Peak Gradient 7.6 mmHg AV Mean Velocity 93.9 cm/s AV Mean Gradient 4.0 mmHg AV Velocity Time Integral 30.3 cm LVOT Peak Velocity 135.0 cm/s LVOT Peak Gradient 7.3 mmHg LVOT Mean Velocity 71.5 cm/s LVOT Mean Gradient 3.0 mmHg LVOT Velocity Time Integral 26.2 cm LVOT Stroke Volume 74.3 cm AV Area Cont Eq vti 2.5 cm AV Area Cont Eq pk 2.8 cm MV Peak Velocity 102.0 cm/s MV Peak Gradient 4.2 mmHg MV Mean Velocity 50.3 cm/s MV Mean Gradient 1.0 mmHg Mitral E Point Velocity 59.7 cm/s Mitral A Point Velocity 82.4 cm/s Mitral E to A Ratio 0.7 MV PHT Velocity 67.2 cm/s MV Deceleration Harper 238.0 cm/s MV Pressure Half Time 84.7 ms MV Area PHT 2.6 cm MV Deceleration Time 198.0 ms TR Peak Velocity 205.0 cm/s TR Peak Gradient 16.8 mmHg Right Atrial Pressure 5.0 mmHg Pulmonary Artery Systolic Pressu 21.8 mmHg Right Ventricular Systolic Press 21.8 mmHg PV Peak Velocity 103.0 cm/s PV Peak Gradient 4.2 mmHg PV Mean Velocity 69.9 cm/s PV Mean Gradient 2.0 mmHg PV Velocity Time Integral 23.8 cm LV E' Lateral Velocity 7.7 cm/s Mitral E to LV E' Lateral Ratio 7.8 LV E' Septal Velocity 6.5 cm/s Mitral E to LV E' Septal Ratio 9.1 DICTATED BY: DEXTER SIGALA MD Disposition Summary Disposition Principal Diagnosis: SEIZURES Additional Diagnosis: Altered mental status Discharge Disposition: [facility] Discharge Instructions General Discharge Information Code Status: Full Code Patient's Diet: REGULAR DIET Patient's Activity: TOLERATED Follow-Up Instructions/Appts: Pt is to be admitted at his home hospital in [place] to continue with workup including MRI and EEG. Medications at Discharge Discharge Medications: Start taking the following new medications: Levetiracetam (Keppra) 500 MG TABLET 1 Tablet ORAL TWICE DAILY Qty = 4 No Refills Copies To: DIANA WISE MD Attending MD Review Statement Documenting Attending: DIANA WISE MD Other Findings: 65 o/m with significant pmh of lung cancer comes with ams and tonic clonic seizure. Neurology consulted and recommends: "65 year old man who presented with GTC seizure with focality suggestive of possible cerebral structural abnormality. Concerns exist in regards to possible brain mets from lung CA. His low platelets, high MCV and elevated ALT could be indicative of his chemotherapy treatment but also of alcohol abuse. In this context if the brain MRI with contrast is normal, alcohol withdrawal seizures should be on the differential. 1. Order MRI brain with and without contrast. 2. C/w Keppra IV 500 q12h. 4. Banana bag. 5. EEG." Patient family wants to take patient to [place] for further evaluation. Patient is vitally stable, aaox 3 oriented and capable of making his own decisions. Patient and family explained in detail about patient clinical condition and risks/benefits of medical therapy in [place] ([place] Patient can be discharged in satisfatcory condition.
[2016-06-23] MEDS ORDERED: KEPPRA500 M1 PO (11:29)
--- NOTE | 2016-06-23 11:33 | Patient Discharge Instructions ---
Discharge Instructions General Discharge Information You were seen/treated for: SEIZURES Special Instructions: You will admitted to your [facility] to continue work up for your seizures (This include getting an EEG and MRI). Please follow up with your primary care wothin 1 week Please check with your primary care physician regarding neurology refferral Diet Continue normal diet: Yes Acute Coronary Syndrome Inclusion Criteria At DC or during hospital stay patient has or had the following: ACS DIAGNOSIS No Discharge Core Measures Meds if any: Prescribed or Continued at Discharge Meds if any: NOT Prescribed or Continued at Discharge Congestive Heart Failure Inclusion Criteria At DC or during hospital stay patient has or had the following: CHF DIAGNOSIS No Discharge Core Measures Meds if any: Prescribed or Continued at Discharge Meds if any: NOT Prescribed or Continued at Discharge Cerebrovascular accident Inclusion Criteria At DC or during hospital stay patient has or had the following: CVA/TIA Diagnosis No Discharge Core Measures Meds if any: Prescribed or Continued at Discharge Meds if any: NOT Prescribed or Continued at Discharge Venous thromboembolism Inclusion Criteria VTE Diagnosis No VTE Type NONE VTE Confirmed by (Test) NONE Discharge Core Measures - Per Current guidelines, there needs to be overlap - treatment for the first 5 days of Warfarin therapy. - If discharged on Warfarin prior to 5 days of - overlap therapy, the patient will need to be - assessed for post discharge needs including - *Post discharge parental anticoagulation - *Warfarin and/or parental anticoagulation education - *Follow up date to check INR post discharge At least 5 days overlap therapy as Inpatient No Meds if any: Prescribed or Continued at Discharge Note: Overlap Therapy is Warfarin and Anticoagulant Meds if any: NOT Prescribed or Continued at Discharge
== END 2016-06-23 17:40 | disposition short-term general hospital (02) | DRG 53 ==
LOC: ENRESERVTM → ENRESERVDT → ERH 22:54 → CRI 06-21 03:05 → 2NB 06-21 03:05 → ERHI 06-21 03:05 → 2NB 06-21 03:05 → ENPENDDIS 06-21 03:05 → CRI 06-21 03:51 → 2NB 06-22 17:01
PROVIDERS: Internal Medicine; Pediatrics; Radiology Diagnostic Radiology; Student in an Organized Health Care Education/Training Program; ADMIT Student in an Organized Health Care Education/Training Program
DX: R56.9 Unspecified convulsions (principal); E87.2 Acidosis; D69.6 Thrombocytopenia, unspecified; E83.52 Hypercalcemia; F17.210 Nicotine dependence, cigarettes, uncomplicated; K76.0 Fatty (change of) liver, not elsewhere classified; Z85.118 Personal history of other malignant neoplasm of bronchus and lung
CPT/HCPCS: 2NBP; CCU; 74176; 80307; 81001; 82436; 87040; 87086; 93005; 93010; 93306; 96374; 96375; 96376; 97116-GO; 97161-GP; G0480; J1650; J1953; J7042; J7060; Q2036